=== PATIENT | female | born 1995 | race Caucasian/White ===

== ENCOUNTER 2016-04-26 05:29 | Emergency (ER) | payer OTHER ==
[~2016-04-26] VITALS: Ht 157.5 cm; Wt 56.3 kg
[~2016-04-26 05:29] MED LIST: ACYCLOVIR200 MG PO; AMBIEN5 MG PO; AMLODIPINE BESYL5 MG PO; AUGMENTIN875 MG PO; BACTRIM,SEPT1 TABLET PO; BENTYL20 MG PO; CALCIUM PO; CALCIUM500 M4 PO; CALCIUM600 MG PO; CARDIZEM30 MG PO; CEFDINIR300 MG PO; CELEXA20 MG PO; CELLCEPT250 MG PO; CITALOPRAM HBR20 M1 PO; CITALOPRAM HBR20 MG PO; CLEOCIN300 MG PO; CLINDAMYCIN HC300 MG PO; DELTASONE20 M1 PO; DIAMOX250 MG PO; DILAUDID2 MG PO; DOCUSATE SODIU100 MG PO; DOXYCYCLINE HY100 M3 PO; DUONEB 2.5-0.5 M3 ML PEP; ENDOCET 5-3251 EACH PO; ERGOCALCIF50000 UNIT PO; ESOMEPRAZOLE ST40 MG PO; FEROSUL325 MG PO; FIORICET 50-301 EACH PO; FIORICET,ESG1 TABLET PO; FLEXERIL10 MG PO; FLINTSTONES GUM16 MG PO; FOLIC ACID1 MG PO; Flovent 110 mcg IH; GABAPENTIN300 MG PO; HYDROMORPHONE HC2 MG PO; HYDROXYCHLOROQ200 MG PO; LABETALOL HCL200 MG PO; LISINOPRIL10 MG PO; LISINOPRIL20 MG PO; LISINOPRIL5 MG PO; LO-DOSE ASPIRIN81 M1 PO; LOTRISONE15 GM TP; LYRICA25 MG PO; MAGNESIUM OXID400 MG PO; METOPROLOL TART50 MG PO; MOTRIN600 MG PO; MYCOPHENOLATE250 MG PO; MYCOPHENOLATE500 MG PO; MYCOSTATIN 100,60 ML PO; Motrin PO; NAPROSYN500 MG PO; NAPROXEN500 MG PO; NEPHRO-VITE,1 TABLET PO; NEURONTIN300 MG PO; NORCO 5/3251 TABLET PO; Normodyne,Trandate PO; OXYCODONE HCL10 MG PO; Oscal 250 w/Vitamin PO; PANTOPRAZOLE SO40 MG PO; PERCOCET 5/31 TABLET PO; PLAQUENIL200 MG PO; PREDNISONE10 M2 PO; PREDNISONE20 MG PO; PREDNISONE50 MG PO; PROAIR HFA8.5 GM IH; PROAIR RESPICL90 MCG IH; PROCARDIA XL30 MG PO; PROVENTIL HFA6.7 GM IH; Percocet 5/325,Endoc PO; Plaquenil PO; Proventil,Ventolin H IH; QUETIAPINE FUMA25 MG PO; RANITIDINE HCL75 MG PO; SKELAXIN800 MG PO; TRAMADOL HCL50 MG PO; TRANDATE200 MG; TYLENOL EXTRA500 MG PO; TYLENOL WITH C1 EACH PO; ULTRAM50 MG PO; VENTOLIN HFA18 GM IH; VICODIN 5-3001 EACH PO; ZANTAC150 MG PO; ZESTRIL20 MG PO; ZITHROMAX Z-PA250 MG PO; ZOFRAN ODT4 MG PO; Zantac PO; celeXA PO; predniSONE PO
[2016-04-26 06:59] LABS: HEMATOCRIT 31.1 % (36.0-46.0); MCH 27.4 PG (29.0-34.0); MCHC 32.5 G/DL (30.0-36.0); MCV 84.3 FL (83-99); MEAN PLAT.VOLUME 9.8 uM^3 (9.5-12.4); PLATELET COUNT 185 K/uL (156-360); RBC DIS.WIDTH-CV 13.4 % (11.8-14.6); RBC DIS.WIDTH-SD 41.2 % (39-53); RED BLOOD COUNT 3.69 M/uL (3.80-5.20); WHITE BLOOD COUNT 2.5 K/uL (4.1-10.2)
[2016-04-26 07:41] LABS: ANION GAP 7 MEQ/L (2-14); CHLORIDE 104 MEQ/L (99-109); POTASSIUM 3.9 MEQ/L (3.7-5.4); SAMPLE HEMOLYSIS CHECK 0; SAMPLE ICTERIC CHECK 0; SAMPLE LIPEMIA CHECK 0; SODIUM 136 MEQ/L (136-147)
[2016-04-26 07:47] LABS: GFR ESTIMATE (CALCULATED) > 59 mL/min/; GLUCOSE 95 mg/dL (70-99); UREA NITROGEN (BUN) 14 mg/dL (9-23)
[2016-04-26 08:22] VITALS: BP 115/69
[2016-04-26 10:27] LABS: EOSINOPHIL (%) 5.6 % (0-5); EOSINOPHIL COUNT 0.1 K/uL (0-0.3); IMMATURE GRANULOCYTE (%) 0.8 % (0.0-0.7); INSTRUMENT ABS NEUTROPHIL CT 1.9 K/uL; LYMPHOCYTE COUNT 0.3 K/uL (1.0-2.8); MONOCYTE (%) 3.6 % (3-12); MONOCYTE COUNT 0.1 K/uL (0-0.8); NEUTROPHIL (%) 77.1 % (45-76); NEUTROPHIL COUNT 1.9 K/uL (1.8-6.4)
== END 2016-04-26 08:23 | disposition home or self-care (01) ==
LOC: EME 05:29
PROVIDERS: Emergency Medicine
DX: M79.1 Myalgia (principal); R07.89 Other chest pain; M32.9 Systemic lupus erythematosus, unspecified; J45.909 Unspecified asthma, uncomplicated; I10 Essential (primary) hypertension; F17.200 Nicotine dependence, unspecified, uncomplicated
CPT/HCPCS: 71020; 80048; 85025; 93005; 99281; 99285; J1170; J7030; J7050

== ENCOUNTER 2016-04-30 06:37 | Emergency (ER) | payer OTHER ==
[~2016-04-30] VITALS: Ht 157.5 cm; Wt 57.4 kg
[2016-04-30 07:37] LABS: HEMATOCRIT 29.2 % (36.0-46.0); MCH 27.2 PG (29.0-34.0); MCHC 32.2 G/DL (30.0-36.0); MCV 84.4 FL (83-99); MEAN PLAT.VOLUME 9.8 uM^3 (9.5-12.4); PLATELET COUNT 172 K/uL (156-360); RBC DIS.WIDTH-CV 13.5 % (11.8-14.6); RBC DIS.WIDTH-SD 41.4 % (39-53); RED BLOOD COUNT 3.46 M/uL (3.80-5.20); WHITE BLOOD COUNT 2.1 K/uL (4.1-10.2)
[2016-04-30 08:17] LABS: ANION GAP 5 MEQ/L (2-14); CHLORIDE 103 MEQ/L (99-109); GFR ESTIMATE (CALCULATED) > 59 mL/min/; GLUCOSE 92 mg/dL (70-99); SAMPLE HEMOLYSIS CHECK 0; SAMPLE ICTERIC CHECK 0; SAMPLE LIPEMIA CHECK 0; SODIUM 134 MEQ/L (136-147); TROP-I INTERPRETATION NEGATIVE; TROPONIN-I 0.01 ng/mL (0.0-0.30); UREA NITROGEN (BUN) 15 mg/dL (9-23)
[2016-04-30 09:30] LABS: D-DIMER ELISA > 4.00 mg/L FEU (< 0.57)
[2016-04-30 10:25] VITALS: BP 116/76
== END 2016-04-30 10:26 | disposition home or self-care (01) ==
LOC: EME 06:37
DX: R07.9 Chest pain, unspecified (principal); R68.83 Chills (without fever); R51 Headache; R59.9 Enlarged lymph nodes, unspecified; R00.0 Tachycardia, unspecified; R79.1 Abnormal coagulation profile; I10 Essential (primary) hypertension; F17.200 Nicotine dependence, unspecified, uncomplicated
CPT/HCPCS: 71020; 80048; 84484; 85027; 85379; 93005; 99281; 99285; J3010

== ENCOUNTER 2016-05-06 05:54 | Inpatient (IN) | payer OTHER ==
[~2016-05-06] VITALS: Ht 157.5 cm; Wt 54.9 kg
[2016-05-06 06:30] LABS: HEMATOCRIT 31.4 % (36.0-46.0); MCH 27.3 PG (29.0-34.0); MCHC 32.5 G/DL (30.0-36.0); PLATELET COUNT 199 K/uL (156-360); RBC DIS.WIDTH-CV 13.9 % (11.8-14.6); RBC DIS.WIDTH-SD 42.8 % (39-53); RED BLOOD COUNT 3.74 M/uL (3.80-5.20); WHITE BLOOD COUNT 2.4 K/uL (4.1-10.2)
[2016-05-06 06:41] LABS: CHLORIDE 102 mEq/L (99-109); POTASSIUM 3.7 mEq/L (3.7-5.4); SODIUM 134 mEq/L (136-147)
[2016-05-06 06:42] LABS: GLUCOSE 98 mg/dL (70-99)
[2016-05-06 06:44] LABS: ANION GAP 9 MEQ/L (2-14)
[2016-05-06 06:46] LABS: GFR ESTIMATE (CALCULATED) > 59 mL/min/
[2016-05-06 06:47] LABS: UREA NITROGEN (BUN) 14 mg/dL (9-23)
[2016-05-06 06:55] LABS: TROP-I INTERPRETATION NEGATIVE; TROPONIN-I < 0.01 ng/mL (0.0-0.30)
[2016-05-06 08:54] LABS: ADD MIUA? YES; BILIRUBIN NEGATIVE; BLOOD SMALL; COLOR YELLOW ((YELLOW)); GLUCOSE (STRIP) NEGATIVE; KETONES NEGATIVE; LEUKOCYTES NEGATIVE; NITRITE NEGATIVE; PROTEIN (STRIP) >=500; SPECIFIC GRAVITY 1.017 (1.000-1.030); UROBILINOGEN 0.2 MG/DL (0.2-1.0)
[2016-05-06 08:59] LABS: TOTAL BILIRUBIN 0.2 mg/dL (0.0-1.0)
[2016-05-06 09:00] LABS: ALKALINE PHOSPHATASE 53 IU/L (3-129)
[2016-05-06 09:02] LABS: DIRECT BILIRUBIN 0.1 mg/dL (0.0-0.3)
[2016-05-06 09:03] LABS: LIPASE 8 U/L (1.0-51.0)
[2016-05-06 09:09] LABS: BACTERIA 2+ /HPF; EPITHELIAL CELLS 1+ /HPF
[2016-05-06 09:10] LABS: MUCUS 1+ /LPF; UCUL ADDED? YES
[2016-05-06 09:19] LABS: INFLUENZA A VIRAL ANTIGEN NEGATIVE; INFLUENZA B VIRAL ANTIGEN NEGATIVE
[2016-05-06] MEDS ORDERED: PREDNISONE20 MG PO (10:41)
[2016-05-06] MEDS ORDERED: MYCOPHENOLATE500 MG PO (10:41)
[2016-05-06] MEDS ORDERED: RANITIDINE HCL150 MG PO (10:41)
[2016-05-06 11:08] VITALS: BP 98/58
[2016-05-06 11:12] LABS: ERTH.SED.RATE 77 MM/HR (0-20)
== END 2016-05-06 11:05 | disposition left against medical advice (07) | DRG 864 ==
LOC: EME 05:54 → EDOF 09:20
PROVIDERS: Emergency Medicine
DX: R50.9 Fever, unspecified (principal); G89.29 Other chronic pain; I10 Essential (primary) hypertension; Z88.6 Allergy status to analgesic agent; Z88.0 Allergy status to penicillin; F17.200 Nicotine dependence, unspecified, uncomplicated; R11.0 Nausea; E86.0 Dehydration; R00.0 Tachycardia, unspecified
CPT/HCPCS: 71020; 80048; 80076; 81003; 83605; 83690; 83880; 84484; 85027; 85651; 87040; 87086; 87502; 93005; 99281; 99284; J1885; J1956; J2405; J7030; J7050

== ENCOUNTER 2016-05-13 06:30 | Emergency (ER) | payer OTHER ==
[~2016-05-13] VITALS: Ht 157.5 cm; Wt 53.7 kg
[~2016-05-13 06:30] MED LIST changes: +RANITIDINE HCL150 MG PO
[2016-05-13 07:57] LABS: ANION GAP 8 MEQ/L (2-14); CHLORIDE 100 MEQ/L (99-109); POTASSIUM 4.6 MEQ/L (3.7-5.4); SAMPLE HEMOLYSIS CHECK 0; SAMPLE ICTERIC CHECK 0; SAMPLE LIPEMIA CHECK 0; SODIUM 133 MEQ/L (136-147)
[2016-05-13 08:03] LABS: GFR ESTIMATE (CALCULATED) > 59 mL/min/; GLUCOSE 102 mg/dL (70-99); UREA NITROGEN (BUN) 14 mg/dL (9-23)
[2016-05-13 08:12] LABS: HEMATOCRIT 30.6 % (36.0-46.0); MCH 26.5 PG (29.0-34.0); MCHC 31.7 G/DL (30.0-36.0); MCV 83.6 FL (83-99); MEAN PLAT.VOLUME 9.2 uM^3 (9.5-12.4); PLATELET COUNT 178 K/uL (156-360); RBC DIS.WIDTH-SD 43.3 % (39-53); RED BLOOD COUNT 3.66 M/uL (3.80-5.20); WHITE BLOOD COUNT 2.6 K/uL (4.1-10.2)
[2016-05-13 08:41] LABS: QUANTITATIVE HCG < 4.0 MIU/ML
[2016-05-13 09:28] LABS: ADD MIUA? YES; BILIRUBIN NEGATIVE; BLOOD NEGATIVE; COLOR AMBER ((YELLOW)); GLUCOSE (STRIP) NEGATIVE; KETONES NEGATIVE; LEUKOCYTES NEGATIVE; NITRITE NEGATIVE; PROTEIN (STRIP) >=500; SPECIFIC GRAVITY 1.022 (1.000-1.030); UROBILINOGEN 0.2 MG/DL (0.2-1.0)
[2016-05-13 09:50] LABS: BACTERIA RARE /HPF; EPITHELIAL CELLS 1+ /HPF; MUCUS TRACE /LPF; RED BLOOD CELLS 0-5 /HPF (0-5); UCUL ADDED? NO
[2016-05-13] MEDS ORDERED: CELEXA20 MG PO (10:01)
[2016-05-13] MEDS ORDERED: DILAUDID2 MG PO (14:12)
[2016-05-13 16:04] VITALS: BP 95/66
== END 2016-05-13 16:14 | disposition home or self-care (01) ==
LOC: EME 06:30
PROVIDERS: Emergency Medicine
DX: M32.9 Systemic lupus erythematosus, unspecified (principal); R11.2 Nausea with vomiting, unspecified; M54.5 Low back pain; I10 Essential (primary) hypertension; Z79.52 Long term (current) use of systemic steroids; F17.200 Nicotine dependence, unspecified, uncomplicated
CPT/HCPCS: 71010; 80048; 81003; 83605; 84702; 85027; 87040; 99281; 99285; J2060; J2270; J2405; J2930; J7030

== ENCOUNTER 2016-05-21 17:39 | Emergency (ER) | payer OTHER ==
[~2016-05-21] VITALS: Ht 157.5 cm; Wt 53.0 kg
[2016-05-21 18:53] LABS: CHLORIDE 102 mEq/L (99-109); POTASSIUM 3.9 mEq/L (3.7-5.4); SODIUM 134 mEq/L (136-147)
[2016-05-21 18:55] LABS: GLUCOSE 96 mg/dL (70-99)
[2016-05-21 18:56] LABS: ANION GAP 10 MEQ/L (2-14)
[2016-05-21 18:57] LABS: TOTAL BILIRUBIN 0.2 mg/dL (0.0-1.0)
[2016-05-21 18:59] LABS: ALKALINE PHOSPHATASE 45 IU/L (3-129); GFR ESTIMATE (CALCULATED) > 59 mL/min/
[2016-05-21 19:00] LABS: UREA NITROGEN (BUN) 13 mg/dL (9-23)
[2016-05-21 19:02] LABS: LIPASE 11 U/L (1.0-51.0)
[2016-05-21 19:08] LABS: QUANTITATIVE HCG < 4.0 MIU/ML
[2016-05-21 19:36] LABS: ADD MIUA? YES; BILIRUBIN NEGATIVE; BLOOD SMALL; COLOR AMBER ((YELLOW)); GLUCOSE (STRIP) NEGATIVE; KETONES NEGATIVE; LEUKOCYTES NEGATIVE; NITRITE NEGATIVE; PROTEIN (STRIP) >=500; SPECIFIC GRAVITY 1.023 (1.000-1.030); UROBILINOGEN 0.2 MG/DL (0.2-1.0)
[2016-05-21 19:50] LABS: EOSINOPHIL (%) 0.9 % (0-5); HEMATOLOGY COMMENT 1 SN; IMMATURE GRANULOCYTE (%) 0.9 % (0.0-0.7); LYMPHOCYTE COUNT 0.2 K/uL (1.0-2.8); MEAN PLAT.VOLUME 11.4 uM^3 (9.5-12.4); MONOCYTE (%) 1.8 % (3-12); MONOCYTE COUNT 0.1 K/uL (0-0.8); NEUTROPHIL (%) 89.4 % (45-76); PLAT.SUFFICIENCY ADEQUATE; PLATELET COUNT 124 K/uL (156-360)
[2016-05-21 19:59] LABS: BACTERIA 2+ /HPF; CASTS PRESENT /LPF; EPITHELIAL CELLS 1+ /HPF; MUCUS RARE /LPF; RED BLOOD CELLS 0-5 /HPF (0-5)
[2016-05-21 19:59] LABS: HEMATOCRIT 28.2 % (36.0-46.0); MCH 26.3 PG (29.0-34.0); MCHC 31.6 G/DL (30.0-36.0); MCV 83.2 FL (83-99); RBC DIS.WIDTH-CV 14.6 % (11.8-14.6); RBC DIS.WIDTH-SD 44.4 % (39-53); RED BLOOD COUNT 3.39 M/uL (3.80-5.20); WHITE BLOOD COUNT 3.3 K/uL (4.1-10.2)
[2016-05-21 20:00] LABS: CRYSTALS NONE SEEN; FINE GRANULAR CASTS 0-5 /LPF; HYALINE CASTS 0-5 /LPF
[2016-05-21] MEDS ORDERED: ZOFRAN ODT4 MG PO (20:44)
[2016-05-21 21:58] VITALS: BP 101/66
== END 2016-05-21 21:58 | disposition home or self-care (01) ==
LOC: EME 17:39
PROVIDERS: Emergency Medicine
DX: R11.0 Nausea (principal); F11.23 Opioid dependence with withdrawal; I10 Essential (primary) hypertension; G89.29 Other chronic pain; M32.9 Systemic lupus erythematosus, unspecified; F17.200 Nicotine dependence, unspecified, uncomplicated; Z88.1 Allergy status to other antibiotic agents; Z88.6 Allergy status to analgesic agent
CPT/HCPCS: 80053; 81003; 83690; 84702; 84703; 85025; 93005; 99281; 99284

== ENCOUNTER 2016-05-27 08:16 | Inpatient (IN) | payer OTHER ==
[~2016-05-27] VITALS: Ht 1585 cm; Wt 54.0 kg
[2016-05-27 09:16] LABS: MCH 26.3 PG (29.0-34.0); MCHC 31.6 G/DL (30.0-36.0); MCV 83.3 FL (83-99); MEAN PLAT.VOLUME 10.9 uM^3 (9.5-12.4); PLATELET COUNT 104 K/uL (156-360); RBC DIS.WIDTH-CV 15.2 % (11.8-14.6); RBC DIS.WIDTH-SD 45.6 % (39-53); RED BLOOD COUNT 3.84 M/uL (3.80-5.20)
[2016-05-27 09:17] LABS: CHLORIDE 103 mEq/L (99-109); POTASSIUM 3.9 mEq/L (3.7-5.4); SODIUM 133 mEq/L (136-147)
[2016-05-27 09:18] LABS: WHITE BLOOD COUNT 1.9 K/uL (4.1-10.2)
[2016-05-27 09:20] LABS: GLUCOSE 84 mg/dL (70-99)
[2016-05-27 09:21] LABS: ANION GAP 10 MEQ/L (2-14)
[2016-05-27 09:23] LABS: GFR ESTIMATE (CALCULATED) > 59 mL/min/; TOTAL BILIRUBIN 0.3 mg/dL (0.0-1.0)
[2016-05-27 09:24] LABS: UREA NITROGEN (BUN) 16 mg/dL (9-23)
[2016-05-27 09:27] LABS: LIPASE 18 U/L (1.0-51.0)
[2016-05-27 09:29] LABS: ALKALINE PHOSPHATASE 61 IU/L (3-129)
[2016-05-27 10:04] LABS: EOSINOPHIL (%) 1.6 % (0-5); HEMATOLOGY COMMENT 1 SMEAR COMPATIBLE; INSTRUMENT ABS NEUTROPHIL CT 1.5 K/uL; LYMPHOCYTE COUNT 0.3 K/uL (1.0-2.8); MONOCYTE (%) 4.7 % (3-12); MONOCYTE COUNT 0.1 K/uL (0-0.8); NEUTROPHIL (%) 78.6 % (45-76); NEUTROPHIL COUNT 1.5 K/uL (1.8-6.4)
[2016-05-27 12:00] VITALS: BP 90/55
[2016-05-27 13:42] LABS: ADD MIUA? YES; BILIRUBIN NEGATIVE; BLOOD NEGATIVE; COLOR YELLOW ((YELLOW)); GLUCOSE (STRIP) NEGATIVE; KETONES NEGATIVE; LEUKOCYTES NEGATIVE; NITRITE NEGATIVE; PROTEIN (STRIP) 100; SPECIFIC GRAVITY 1.018 (1.000-1.030); UROBILINOGEN 0.2 MG/DL (0.2-1.0)
[2016-05-27 13:52] LABS: BACTERIA RARE /HPF; EPITHELIAL CELLS RARE /HPF; HYALINE CASTS 20-30 /LPF; MUCUS TRACE /LPF; RED BLOOD CELLS 0-5 /HPF (0-5); UCUL ADDED? NO
[2016-05-27 15:55] VITALS: BP 90/55
[2016-05-27 20:37] VITALS: BP 89/53
[2016-05-28 00:15] VITALS: BP 90/52
[2016-05-28 03:51] VITALS: BP 84/48
[2016-05-28 09:00] VITALS: BP 92/51
[2016-05-28 09:30] LABS: ANION GAP 5 MEQ/L (2-14); CHLORIDE 107 MEQ/L (99-109); GFR ESTIMATE (CALCULATED) > 59 mL/min/; GLUCOSE 84 mg/dL (70-99); POTASSIUM 3.7 MEQ/L (3.7-5.4); SAMPLE HEMOLYSIS CHECK 0; SAMPLE ICTERIC CHECK 0; SAMPLE LIPEMIA CHECK 0; SODIUM 133 MEQ/L (136-147); UREA NITROGEN (BUN) 12 mg/dL (9-23)
[2016-05-28 09:56] LABS: HEMATOCRIT 24.4 % (36.0-46.0); MCH 26.5 PG (29.0-34.0); MCHC 30.7 G/DL (30.0-36.0); MCV 86.2 FL (83-99); MEAN PLAT.VOLUME 11.9 uM^3 (9.5-12.4); PLATELET COUNT 96 K/uL (156-360); RBC DIS.WIDTH-CV 15.2 % (11.8-14.6); RBC DIS.WIDTH-SD 48.5 % (39-53)
[2016-05-28 10:03] LABS: RED BLOOD COUNT 2.83 M/uL (3.80-5.20); WHITE BLOOD COUNT 1.5 K/uL (4.1-10.2)
[2016-05-28 12:07] LABS: IRON 20 MCG/DL (35-150)
[2016-05-28 12:17] LABS: HEMATOCRIT 24.2 % (36.0-46.0); MCV 87.1 FL (83-99)
[2016-05-28 12:23] LABS: FERRITIN 436 NG/ML (10-291)
[2016-05-28 13:02] VITALS: BP 86/45
[2016-05-28 15:00] VITALS: BP 84/47
[2016-05-28 19:10] VITALS: BP 88/46
[2016-05-29 00:26] VITALS: BP 81/45
[2016-05-29 04:00] VITALS: BP 88/41
[2016-05-29 08:30] VITALS: BP 94/51
[2016-05-29 12:42] VITALS: BP 84/48
[2016-05-29 13:11] LABS: HEMATOCRIT 25.9 % (36.0-46.0); MCH 26.6 PG (29.0-34.0); MCHC 30.5 G/DL (30.0-36.0); MCV 87.2 FL (83-99); MEAN PLAT.VOLUME 11.9 uM^3 (9.5-12.4); PLATELET COUNT 103 K/uL (156-360); RBC DIS.WIDTH-CV 15.7 % (11.8-14.6); RBC DIS.WIDTH-SD 49.6 % (39-53); RED BLOOD COUNT 2.97 M/uL (3.80-5.20)
[2016-05-29 13:17] LABS: WHITE BLOOD COUNT 1.7 K/uL (4.1-10.2)
[2016-05-29 13:52] LABS: EOSINOPHIL (%) 1.8 % (0-5); IMMATURE GRANULOCYTE (%) 1.2 % (0.0-0.7); INSTRUMENT ABS NEUTROPHIL CT 1.4 K/uL; LYMPHOCYTE COUNT 0.1 K/uL (1.0-2.8); MONOCYTE (%) 4.2 % (3-12); MONOCYTE COUNT 0.1 K/uL (0-0.8); NEUTROPHIL (%) 86.2 % (45-76); NEUTROPHIL COUNT 1.4 K/uL (1.8-6.4)
[2016-05-29 16:15] VITALS: BP 102/55
[2016-05-29 20:05] VITALS: BP 83/51
[2016-05-30] VITALS (7 sets, daily range): BP systolic 83–101; BP diastolic 48–60
[2016-05-30 10:12] LABS: HEMATOCRIT 22.1 % (36.0-46.0); MCH 26.6 PG (29.0-34.0); MCHC 30.8 G/DL (30.0-36.0); MCV 86.3 FL (83-99); PLATELET COUNT 81 K/uL (156-360); RBC DIS.WIDTH-CV 15.8 % (11.8-14.6); RBC DIS.WIDTH-SD 49.7 % (39-53); RED BLOOD COUNT 2.56 M/uL (3.80-5.20)
[2016-05-30 10:13] LABS: MEAN PLAT.VOLUME 9.9 uM^3 (9.5-12.4); WHITE BLOOD COUNT 1.5 K/uL (4.1-10.2)
[2016-05-30 10:31] LABS: ANION GAP 6 MEQ/L (2-14); CHLORIDE 108 MEQ/L (99-109); GFR ESTIMATE (CALCULATED) > 59 mL/min/; GLUCOSE 87 mg/dL (70-99); MAGNESIUM 1.3 mg/dl (1.3-2.7); POTASSIUM 4.1 MEQ/L (3.7-5.4); SAMPLE HEMOLYSIS CHECK 0; SAMPLE ICTERIC CHECK 0; SAMPLE LIPEMIA CHECK 0; SODIUM 135 MEQ/L (136-147); UREA NITROGEN (BUN) 9 mg/dL (9-23)
[2016-05-30 16:59] LABS: HEMATOCRIT 22.7 % (36.0-46.0); MCH 26.8 PG (29.0-34.0); MCHC 31.3 G/DL (30.0-36.0); MCV 85.7 FL (83-99); MEAN PLAT.VOLUME 11.3 uM^3 (9.5-12.4); PLATELET COUNT 94 K/uL (156-360); RBC DIS.WIDTH-CV 15.9 % (11.8-14.6); RBC DIS.WIDTH-SD 49.5 % (39-53); RED BLOOD COUNT 2.65 M/uL (3.80-5.20)
[2016-05-30 17:00] LABS: WHITE BLOOD COUNT 1.8 K/uL (4.1-10.2)
[2016-05-31 04:03] VITALS: BP 109/60
[2016-05-31 07:15] VITALS: BP 91/55
[2016-05-31 09:04] LABS: EOSINOPHIL (%) 0 % (0-5); HEMATOCRIT 23.4 % (36.0-46.0); IMMATURE GRANULOCYTE (%) 1.5 % (0.0-0.7); INSTRUMENT ABS NEUTROPHIL CT 1.8 K/uL; LYMPHOCYTE COUNT 0.1 K/uL (1.0-2.8); MCHC 31.6 G/DL (30.0-36.0); MCV 85.4 FL (83-99); MEAN PLAT.VOLUME 9.7 uM^3 (9.5-12.4); MONOCYTE COUNT 0.1 K/uL (0-0.8); NEUTROPHIL (%) 89.6 % (45-76); NEUTROPHIL COUNT 1.8 K/uL (1.8-6.4); PLATELET COUNT 84 K/uL (156-360); RBC DIS.WIDTH-CV 15.9 % (11.8-14.6); RBC DIS.WIDTH-SD 49.1 % (39-53); RED BLOOD COUNT 2.74 M/uL (3.80-5.20)
[2016-05-31 09:33] LABS: ANION GAP 4 MEQ/L (2-14); CHLORIDE 108 MEQ/L (99-109); GFR ESTIMATE (CALCULATED) > 59 mL/min/; POTASSIUM 4.5 MEQ/L (3.7-5.4); SAMPLE HEMOLYSIS CHECK 0; SAMPLE ICTERIC CHECK 0; SAMPLE LIPEMIA CHECK 0; SODIUM 132 MEQ/L (136-147); UREA NITROGEN (BUN) 10 mg/dL (9-23)
[2016-05-31 09:35] LABS: GLUCOSE 169 mg/dL (70-99)
[2016-05-31 11:00] VITALS: BP 93/54
[2016-05-31 15:30] VITALS: BP 103/59
== END 2016-05-31 16:25 | disposition left against medical advice (07) | DRG 546 ==
LOC: EME 08:16 → 4EAST 10:35 → EDOF 10:35 → 4EAST 11:42 → 2EAST 05-29 16:14
PROVIDERS: Emergency Medicine; Hospitalist; Internal Medicine
DX: M32.9 Systemic lupus erythematosus, unspecified (principal); D61.818 Other pancytopenia; E86.0 Dehydration; E46 Unspecified protein-calorie malnutrition; G89.29 Other chronic pain; Z79.52 Long term (current) use of systemic steroids; F32.9 Major depressive disorder, single episode, unspecified; Z91.19 Patient's noncompliance with other medical treatment and regimen; G40.909 Epilepsy, unspecified, not intractable, without status epilepticus; F41.9 Anxiety disorder, unspecified; F17.210 Nicotine dependence, cigarettes, uncomplicated; E88.09 Other disorders of plasma-protein metabolism, not elsewhere classified; R65.10 Systemic inflammatory response syndrome (SIRS) of non-infectious origin without acute organ dysfunction; E53.8 Deficiency of other specified B group vitamins
CPT/HCPCS: 71010; 74176; 80048; 80053; 81003; 82272; 82607; 82728; 83540; 83605; 83690; 83735; 84466; 85014; 85018; 85025; 85027; 87040; 99281; 99285; C9113; J0610; J1170; J2270; J2405; J2765; J2930; J7030; J7050; J7517

== ENCOUNTER 2016-06-01 09:47 | Inpatient (IN) | payer OTHER ==
[~2016-06-01] VITALS: Ht 157.5 cm; Wt 53.0 kg
[2016-06-01 10:33] LABS: ADD MIUA? YES; BILIRUBIN NEGATIVE; BLOOD MODERATE; COLOR YELLOW ((YELLOW)); GLUCOSE (STRIP) NEGATIVE; KETONES NEGATIVE; LEUKOCYTES NEGATIVE; NITRITE NEGATIVE; PROTEIN (STRIP) 100; SPECIFIC GRAVITY 1.011 (1.000-1.030); UROBILINOGEN 0.2 MG/DL (0.2-1.0)
[2016-06-01 10:39] LABS: BACTERIA RARE /HPF; EPITHELIAL CELLS RARE /HPF; HYALINE CASTS 0-5 /LPF; MUCUS TRACE /LPF; RED BLOOD CELLS 0-5 /HPF (0-5); UCUL ADDED? NO; UNCLASSIFIED CASTS 0-5 /LPF; WHITE BLOOD CELLS 0-5 /HPF (0-5)
[2016-06-01 10:58] LABS: EOSINOPHIL (%) 0 % (0-5); HEMATOCRIT 27.5 % (36.0-46.0); IMMATURE GRANULOCYTE (%) 1.8 % (0.0-0.7); IMMATURE GRANULOCYTE COUNT 0.1 K/uL; INSTRUMENT ABS NEUTROPHIL CT 4.7 K/uL; LYMPHOCYTE COUNT 0.3 K/uL (1.0-2.8); MCH 26.2 PG (29.0-34.0); MCHC 30.9 G/DL (30.0-36.0); MCV 84.9 FL (83-99); MEAN PLAT.VOLUME 10.2 uM^3 (9.5-12.4); MONOCYTE (%) 7.1 % (3-12); MONOCYTE COUNT 0.4 K/uL (0-0.8); NEUTROPHIL (%) 85.7 % (45-76); NEUTROPHIL COUNT 4.7 K/uL (1.8-6.4); RBC DIS.WIDTH-CV 16.3 % (11.8-14.6); RBC DIS.WIDTH-SD 50.1 % (39-53); RED BLOOD COUNT 3.24 M/uL (3.80-5.20)
[2016-06-01 10:59] LABS: PLATELET COUNT 147 K/uL (156-360); WHITE BLOOD COUNT 5.5 K/uL (4.1-10.2)
[2016-06-01 11:02] LABS: CHLORIDE 111 mEq/L (99-109); SODIUM 135 mEq/L (136-147)
[2016-06-01 11:05] LABS: ANION GAP 7 MEQ/L (2-14)
[2016-06-01 11:06] LABS: GLUCOSE 118 mg/dL (70-99)
[2016-06-01 11:07] LABS: ALKALINE PHOSPHATASE 67 IU/L (3-129)
[2016-06-01 11:08] LABS: GFR ESTIMATE (CALCULATED) > 59 mL/min/
[2016-06-01 11:09] LABS: TOTAL BILIRUBIN 0.2 mg/dL (0.0-1.0); UREA NITROGEN (BUN) 15 mg/dL (9-23)
[2016-06-01 11:11] LABS: LIPASE 797 U/L (1.0-51.0)
[2016-06-01 16:49] VITALS: BP 124/82
[2016-06-01 23:51] VITALS: BP 99/62
[2016-06-02 03:53] VITALS: BP 100/67
[2016-06-02 07:14] LABS: EOSINOPHIL (%) 0.4 % (0-5); HEMATOCRIT 25.5 % (36.0-46.0); IMMATURE GRANULOCYTE (%) 3.4 % (0.0-0.7); IMMATURE GRANULOCYTE COUNT 0.1 K/uL; INSTRUMENT ABS NEUTROPHIL CT 1.8 K/uL; LYMPHOCYTE COUNT 0.2 K/uL (1.0-2.8); MCH 26.4 PG (29.0-34.0); MCHC 30.6 G/DL (30.0-36.0); MCV 86.1 FL (83-99); MEAN PLAT.VOLUME 11.5 uM^3 (9.5-12.4); MONOCYTE (%) 8.6 % (3-12); MONOCYTE COUNT 0.2 K/uL (0-0.8); NEUTROPHIL (%) 78.6 % (45-76); NEUTROPHIL COUNT 1.8 K/uL (1.8-6.4); PLATELET COUNT 114 K/uL (156-360); RBC DIS.WIDTH-CV 16.4 % (11.8-14.6); RBC DIS.WIDTH-SD 50.2 % (39-53); RED BLOOD COUNT 2.96 M/uL (3.80-5.20)
[2016-06-02 07:15] LABS: WHITE BLOOD COUNT 2.3 K/uL (4.1-10.2)
[2016-06-02 07:33] LABS: ALKALINE PHOSPHATASE 54 IU/L (3-129); ANION GAP 8 MEQ/L (2-14); CHLORIDE 111 MEQ/L (99-109); GFR ESTIMATE (CALCULATED) > 59 mL/min/; SAMPLE HEMOLYSIS CHECK 0; SAMPLE ICTERIC CHECK 0; SAMPLE LIPEMIA CHECK 0; SODIUM 139 MEQ/L (136-147); TOTAL BILIRUBIN 0.2 MG/DL (0.0-1.0); UREA NITROGEN (BUN) 10 mg/dL (9-23)
[2016-06-02 07:38] LABS: GLUCOSE 63 mg/dL (70-99); POTASSIUM 3.7 MEQ/L (3.7-5.4)
[2016-06-02 07:58] VITALS: BP 104/64
[2016-06-02 08:20] LABS: ANION GAP 5 MEQ/L (2-14); CHLORIDE 113 MEQ/L (99-109); GFR ESTIMATE (CALCULATED) > 59 mL/min/; GLUCOSE 65 mg/dL (70-99); HDL CHOLESTEROL 11 MG/DL (Desirable>=50); LDL CHOLESTEROL 32 mg/dL (Desirable<100); LIPASE 312 U/L (1.0-51.0); NON-HDL CHOLESTEROL 75 mg/dL (Desirable<160); POTASSIUM 3.7 MEQ/L (3.7-5.4); SAMPLE HEMOLYSIS CHECK 0; SAMPLE ICTERIC CHECK 0; SAMPLE LIPEMIA CHECK 0; SODIUM 139 MEQ/L (136-147); TOTAL CHOLESTEROL 86 mg/dL (Desirable<200); TRIGLYCERIDES 216 MG/DL (Normal: <150); UREA NITROGEN (BUN) 10 mg/dL (9-23)
[2016-06-02 11:16] VITALS: BP 114/67
[2016-06-02 20:10] VITALS: BP 128/71
[2016-06-03] VITALS: BP 114/71
[2016-06-03 03:58] VITALS: BP 103/63
[2016-06-03 07:43] VITALS: BP 93/55
[2016-06-03 07:50] LABS: EOSINOPHIL (%) 0 % (0-5); HEMATOCRIT 23.4 % (36.0-46.0); IMMATURE GRANULOCYTE (%) 1.3 % (0.0-0.7); INSTRUMENT ABS NEUTROPHIL CT 1.2 K/uL; LYMPHOCYTE COUNT 0.2 K/uL (1.0-2.8); MCH 25.7 PG (29.0-34.0); MCHC 30.3 G/DL (30.0-36.0); MCV 84.8 FL (83-99); MEAN PLAT.VOLUME 10.6 uM^3 (9.5-12.4); MONOCYTE (%) 7.8 % (3-12); MONOCYTE COUNT 0.1 K/uL (0-0.8); NEUTROPHIL (%) 80.5 % (45-76); NEUTROPHIL COUNT 1.2 K/uL (1.8-6.4); PLATELET COUNT 91 K/uL (156-360); RBC DIS.WIDTH-CV 16.6 % (11.8-14.6); RBC DIS.WIDTH-SD 50.6 % (39-53); RED BLOOD COUNT 2.76 M/uL (3.80-5.20)
[2016-06-03 08:28] LABS: WHITE BLOOD COUNT 1.5 K/uL (4.1-10.2)
[2016-06-03 09:17] LABS: ALKALINE PHOSPHATASE 62 IU/L (3-129); ANION GAP 6 MEQ/L (2-14); CHLORIDE 108 MEQ/L (99-109); GFR ESTIMATE (CALCULATED) > 59 mL/min/; LIPASE 120 U/L (1.0-51.0); POTASSIUM 3.6 MEQ/L (3.7-5.4); SAMPLE HEMOLYSIS CHECK 0; SAMPLE ICTERIC CHECK 0; SAMPLE LIPEMIA CHECK 0; SODIUM 133 MEQ/L (136-147); TOTAL BILIRUBIN 0.2 MG/DL (0.0-1.0); UREA NITROGEN (BUN) 8 mg/dL (9-23)
[2016-06-03 09:20] LABS: GLUCOSE 81 mg/dL (70-99)
[2016-06-03 11:28] VITALS: BP 94/57
[2016-06-03 14:17] LABS: HEMATOCRIT 25.7 % (36.0-46.0); MCV 85.4 FL (83-99)
[2016-06-03 15:35] VITALS: BP 95/47
[2016-06-03 19:44] VITALS: BP 107/48
[2016-06-04] VITALS (7 sets, daily range): BP systolic 87–103; BP diastolic 47–64
[2016-06-05] VITALS (10 sets, daily range): BP systolic 88–126; BP diastolic 51–67
[2016-06-05 07:49] LABS: HEMATOCRIT 21.1 % (36.0-46.0); MCH 26.3 PG (29.0-34.0); MCHC 31.3 G/DL (30.0-36.0); MCV 84.1 FL (83-99); MEAN PLAT.VOLUME 12.1 uM^3 (9.5-12.4); PLATELET COUNT 88 K/uL (156-360); RBC DIS.WIDTH-CV 16.7 % (11.8-14.6); RBC DIS.WIDTH-SD 50.4 % (39-53); RED BLOOD COUNT 2.51 M/uL (3.80-5.20); WHITE BLOOD COUNT 1.8 K/uL (4.1-10.2)
[2016-06-05 08:05] LABS: ANION GAP 5 MEQ/L (2-14); CHLORIDE 106 MEQ/L (99-109); GFR ESTIMATE (CALCULATED) > 59 mL/min/; GLUCOSE 87 mg/dL (70-99); LIPASE 115 U/L (1.0-51.0); POTASSIUM 3.8 MEQ/L (3.7-5.4); SAMPLE HEMOLYSIS CHECK 0; SAMPLE ICTERIC CHECK 0; SAMPLE LIPEMIA CHECK 0; SODIUM 131 MEQ/L (136-147); UREA NITROGEN (BUN) 8 mg/dL (9-23)
[2016-06-05 16:24] LABS: HEMATOCRIT 29.7 % (36.0-46.0); MCH 27.6 PG (29.0-34.0); MCV 83.7 FL (83-99); MEAN PLAT.VOLUME 10.8 uM^3 (9.5-12.4); PLATELET COUNT 85 K/uL (156-360); RBC DIS.WIDTH-CV 15.8 % (11.8-14.6); RBC DIS.WIDTH-SD 47.9 % (39-53); WHITE BLOOD COUNT 2.3 K/uL (4.1-10.2)
[2016-06-05 16:29] LABS: RED BLOOD COUNT 3.55 M/uL (3.80-5.20)
[2016-06-05 17:06] LABS: IMM.RETIC FRACTION 12.3 % (3-19); RETIC HGB EQUIVALENT 29.9 (28-36); RETICULOCYTE COUNT 1.8 % (0.5-1.8)
[2016-06-06] VITALS (8 sets, daily range): BP systolic 99–123; BP diastolic 57–78
[2016-06-06 09:31] LABS: HEMATOCRIT 31.6 % (36.0-46.0); MCH 27.2 PG (29.0-34.0); MCHC 32.6 G/DL (30.0-36.0); MCV 83.4 FL (83-99); MEAN PLAT.VOLUME 10.3 uM^3 (9.5-12.4); PLATELET COUNT 80 K/uL (156-360); RBC DIS.WIDTH-CV 16.3 % (11.8-14.6); RBC DIS.WIDTH-SD 49.3 % (39-53); RED BLOOD COUNT 3.79 M/uL (3.80-5.20)
[2016-06-06 09:50] LABS: ANION GAP 8 MEQ/L (2-14); CHLORIDE 104 MEQ/L (99-109); GFR ESTIMATE (CALCULATED) > 59 mL/min/; GLUCOSE 83 mg/dL (70-99); LIPASE 137 U/L (1.0-51.0); POTASSIUM 3.7 MEQ/L (3.7-5.4); SAMPLE HEMOLYSIS CHECK 0; SAMPLE ICTERIC CHECK 0; SAMPLE LIPEMIA CHECK 0; SODIUM 131 MEQ/L (136-147); UREA NITROGEN (BUN) 8 mg/dL (9-23)
[2016-06-06 09:59] LABS: WHITE BLOOD COUNT 4.1 K/uL (4.1-10.2)
[2016-06-07] VITALS (9 sets, daily range): BP systolic 91–108; BP diastolic 51–73
[2016-06-07 08:44] LABS: HEMATOCRIT 30.9 % (36.0-46.0); MCH 26.7 PG (29.0-34.0); MCHC 31.4 G/DL (30.0-36.0); MCV 85.1 FL (83-99); MEAN PLAT.VOLUME 10.6 uM^3 (9.5-12.4); PLATELET COUNT 66 K/uL (156-360); RBC DIS.WIDTH-CV 16.5 % (11.8-14.6); RBC DIS.WIDTH-SD 50.9 % (39-53); RED BLOOD COUNT 3.63 M/uL (3.80-5.20)
[2016-06-07 08:46] LABS: WHITE BLOOD COUNT 6.1 K/uL (4.1-10.2)
[2016-06-07 09:02] LABS: ALKALINE PHOSPHATASE 77 IU/L (3-129); ANION GAP 8 MEQ/L (2-14); CHLORIDE 104 MEQ/L (99-109); CREATINE KINASE 228 IU/L (1-294); DIRECT BILIRUBIN 0.1 mg/dL (0.0-0.3); GFR ESTIMATE (CALCULATED) > 59 mL/min/; GLUCOSE 74 mg/dL (70-99); LIPASE 64 U/L (1.0-51.0); MAGNESIUM 1.2 mg/dl (1.3-2.7); POTASSIUM 3.6 MEQ/L (3.7-5.4); SAMPLE HEMOLYSIS CHECK 0; SAMPLE ICTERIC CHECK 0; SAMPLE LIPEMIA CHECK 0; SODIUM 129 MEQ/L (136-147); TOTAL BILIRUBIN 0.4 MG/DL (0.0-1.0); UREA NITROGEN (BUN) 7 mg/dL (9-23)
[2016-06-07 09:30] LABS: ANISOCYTOSIS 1+; BAND NEUTROPHILS 41.9 % (0-8.0); BURR CELLS 2+; EOSINOPHIL ABS CT 0; INSTRUMENT ABS NEUTROPHIL CT 5.6 K/uL; OVALOCYTES 1+; PLAT.SUFFICIENCY DECREASED; POIKILOCYTOSIS 2+; SEG.NEUTROPHILS 57.1 % (46.0-76.0); TEAR DROP CELLS 1+
[2016-06-07 18:25] LABS: INFLUENZA A VIRAL ANTIGEN NEGATIVE; INFLUENZA B VIRAL ANTIGEN NEGATIVE
[2016-06-08 03:27] VITALS: BP 111/59
[2016-06-08 06:38] LABS: HEMATOCRIT 25.9 % (36.0-46.0); MCH 26.6 PG (29.0-34.0); MCHC 30.9 G/DL (30.0-36.0); MEAN PLAT.VOLUME 10.3 uM^3 (9.5-12.4); NRBC (%) 0.4 /100 WBC (0-0); PLATELET COUNT 54 K/uL (156-360); RBC DIS.WIDTH-CV 16.7 % (11.8-14.6); RBC DIS.WIDTH-SD 52.5 % (39-53); RED BLOOD COUNT 3.01 M/uL (3.80-5.20); WHITE BLOOD COUNT 4.6 K/uL (4.1-10.2)
[2016-06-08 06:59] LABS: ALKALINE PHOSPHATASE 81 IU/L (3-129); ANION GAP 5 MEQ/L (2-14); CHLORIDE 109 MEQ/L (99-109); GFR ESTIMATE (CALCULATED) > 59 mL/min/; GLUCOSE 86 mg/dL (70-99); POTASSIUM 3.7 MEQ/L (3.7-5.4); SAMPLE HEMOLYSIS CHECK 0; SAMPLE ICTERIC CHECK 0; SAMPLE LIPEMIA CHECK 0; UREA NITROGEN (BUN) 6 mg/dL (9-23)
[2016-06-08 07:08] LABS: SODIUM 136 MEQ/L (136-147); TOTAL BILIRUBIN 0.3 MG/DL (0.0-1.0)
[2016-06-08 07:20] VITALS: BP 101/55
[2016-06-08 09:46] LABS: EOSINOPHIL (%) 0 % (0-5); IMMATURE GRANULOCYTE (%) 0.9 % (0.0-0.7); LYMPHOCYTE COUNT 0.2 K/uL (1.0-2.8); MONOCYTE (%) 5.7 % (3-12); MONOCYTE COUNT 0.3 K/uL (0-0.8); NEUTROPHIL (%) 87.9 % (45-76)
[2016-06-08 11:33] VITALS: BP 90/52
[2016-06-08 16:24] VITALS: BP 94/56
[2016-06-08 20:00] VITALS: BP 91/52
[2016-06-09 00:15] VITALS: BP 108/58
[2016-06-09 03:30] VITALS: BP 105/59
[2016-06-09 07:54] VITALS: BP 105/52
[2016-06-09 09:25] LABS: EOSINOPHIL (%) 0.4 % (0-5); HEMATOCRIT 29.6 % (36.0-46.0); IMMATURE GRANULOCYTE (%) 1.1 % (0.0-0.7); INSTRUMENT ABS NEUTROPHIL CT 2.3 K/uL; LYMPHOCYTE COUNT 0.2 K/uL (1.0-2.8); MCH 26.5 PG (29.0-34.0); MCHC 30.7 G/DL (30.0-36.0); MCV 86.3 FL (83-99); MONOCYTE (%) 8.1 % (3-12); MONOCYTE COUNT 0.2 K/uL (0-0.8); NEUTROPHIL COUNT 2.3 K/uL (1.8-6.4); PLATELET COUNT 70 K/uL (156-360); RBC DIS.WIDTH-CV 17.2 % (11.8-14.6); RBC DIS.WIDTH-SD 54.1 % (39-53); RED BLOOD COUNT 3.43 M/uL (3.80-5.20)
[2016-06-09 09:31] LABS: WHITE BLOOD COUNT 2.9 K/uL (4.1-10.2)
[2016-06-09 09:42] LABS: ANION GAP 4 MEQ/L (2-14); CHLORIDE 109 MEQ/L (99-109); GFR ESTIMATE (CALCULATED) > 59 mL/min/; GLUCOSE 104 mg/dL (70-99); POTASSIUM 3.4 MEQ/L (3.7-5.4); SAMPLE HEMOLYSIS CHECK 0; SAMPLE ICTERIC CHECK 0; SAMPLE LIPEMIA CHECK 0; SODIUM 135 MEQ/L (136-147); UREA NITROGEN (BUN) 4 mg/dL (9-23)
[2016-06-09 14:14] VITALS: BP 109/77
[2016-06-09 20:00] VITALS: BP 114/74
[2016-06-09 23:30] VITALS: BP 102/67
[2016-06-10 03:15] VITALS: BP 93/59
[2016-06-10 07:50] VITALS: BP 100/71
[2016-06-10 09:28] LABS: EOSINOPHIL (%) 0.3 % (0-5); HEMATOCRIT 30.5 % (36.0-46.0); IMMATURE GRANULOCYTE (%) 1.7 % (0.0-0.7); IMMATURE GRANULOCYTE COUNT 0.1 K/uL; INSTRUMENT ABS NEUTROPHIL CT 2.2 K/uL; LYMPHOCYTE COUNT 0.3 K/uL (1.0-2.8); MCHC 31.5 G/DL (30.0-36.0); MCV 85.9 FL (83-99); MEAN PLAT.VOLUME 11.6 uM^3 (9.5-12.4); MONOCYTE (%) 12.9 % (3-12); MONOCYTE COUNT 0.4 K/uL (0-0.8); NEUTROPHIL (%) 73.9 % (45-76); NEUTROPHIL COUNT 2.2 K/uL (1.8-6.4); RBC DIS.WIDTH-CV 17.3 % (11.8-14.6); RBC DIS.WIDTH-SD 54.1 % (39-53); RED BLOOD COUNT 3.55 M/uL (3.80-5.20)
[2016-06-10 09:29] LABS: PLATELET COUNT 98 K/uL (156-360)
[2016-06-10 10:02] LABS: ALKALINE PHOSPHATASE 100 IU/L (3-129); ANION GAP 4 MEQ/L (2-14); CHLORIDE 109 MEQ/L (99-109); GFR ESTIMATE (CALCULATED) > 59 mL/min/; GLUCOSE 102 mg/dL (70-99); POTASSIUM 3.6 MEQ/L (3.7-5.4); SAMPLE HEMOLYSIS CHECK 0; SAMPLE ICTERIC CHECK 0; SAMPLE LIPEMIA CHECK 0; SODIUM 136 MEQ/L (136-147); UREA NITROGEN (BUN) 6 mg/dL (9-23)
[2016-06-10 10:03] LABS: TOTAL BILIRUBIN 0.2 MG/DL (0.0-1.0)
[2016-06-10 12:18] VITALS: BP 99/53
[2016-06-10 16:14] VITALS: BP 122/78
[2016-06-10 19:30] VITALS: BP 112/70
[2016-06-10 23:00] VITALS: BP 110/60
[2016-06-11 02:22] LABS: UR CREATININE CONCENTRATION 25.6 MG/DL
[2016-06-11 03:40] VITALS: BP 113/68
[2016-06-11 08:25] VITALS: BP 111/68
[2016-06-11 08:46] LABS: EOSINOPHIL (%) 0.7 % (0-5); HEMATOCRIT 30.7 % (36.0-46.0); IMMATURE GRANULOCYTE (%) 1.8 % (0.0-0.7); IMMATURE GRANULOCYTE COUNT 0.1 K/uL; INSTRUMENT ABS NEUTROPHIL CT 2.3 K/uL; LYMPHOCYTE COUNT 0.2 K/uL (1.0-2.8); MCH 26.8 PG (29.0-34.0); MCHC 31.3 G/DL (30.0-36.0); MCV 85.8 FL (83-99); MEAN PLAT.VOLUME 10.8 uM^3 (9.5-12.4); MONOCYTE (%) 7.3 % (3-12); MONOCYTE COUNT 0.2 K/uL (0-0.8); NEUTROPHIL (%) 83.6 % (45-76); NEUTROPHIL COUNT 2.3 K/uL (1.8-6.4); PLATELET COUNT 103 K/uL (156-360); RBC DIS.WIDTH-CV 17.2 % (11.8-14.6); RBC DIS.WIDTH-SD 54.7 % (39-53); RED BLOOD COUNT 3.58 M/uL (3.80-5.20); WHITE BLOOD COUNT 2.7 K/uL (4.1-10.2)
[2016-06-11 09:10] LABS: INTERNAL CONTROL VALID? YES
[2016-06-11 09:11] LABS: ALKALINE PHOSPHATASE 94 IU/L (3-129); ANION GAP 5 MEQ/L (2-14); CHLORIDE 104 MEQ/L (99-109); GFR ESTIMATE (CALCULATED) > 59 mL/min/; GLUCOSE 88 mg/dL (70-99); POTASSIUM 3.8 MEQ/L (3.7-5.4); SAMPLE HEMOLYSIS CHECK 0; SAMPLE ICTERIC CHECK 0; SAMPLE LIPEMIA CHECK 0; SODIUM 135 MEQ/L (136-147); UREA NITROGEN (BUN) 6 mg/dL (9-23)
[2016-06-11 09:15] LABS: TOTAL BILIRUBIN 0.3 MG/DL (0.0-1.0)
[2016-06-11 12:25] VITALS: BP 112/76
[2016-06-11 16:11] VITALS: BP 123/82
[2016-06-11 21:10] VITALS: BP 101/89
[2016-06-12 06:18] LABS: HEMATOCRIT 29.2 % (36.0-46.0); MCH 26.7 PG (29.0-34.0); MCHC 31.5 G/DL (30.0-36.0); MCV 84.6 FL (83-99); MEAN PLAT.VOLUME 10.3 uM^3 (9.5-12.4); PLATELET COUNT 103 K/uL (156-360); RBC DIS.WIDTH-CV 16.9 % (11.8-14.6); RBC DIS.WIDTH-SD 52.2 % (39-53); RED BLOOD COUNT 3.45 M/uL (3.80-5.20)
[2016-06-12 06:41] LABS: ANION GAP 6 MEQ/L (2-14); CHLORIDE 99 MEQ/L (99-109); GFR ESTIMATE (CALCULATED) > 59 mL/min/; GLUCOSE 76 mg/dL (70-99); POTASSIUM 3.9 MEQ/L (3.7-5.4); SAMPLE HEMOLYSIS CHECK 0; SAMPLE ICTERIC CHECK 0; SAMPLE LIPEMIA CHECK 0; SODIUM 134 MEQ/L (136-147); UREA NITROGEN (BUN) 7 mg/dL (9-23)
[2016-06-12 07:12] LABS: EOSINOPHIL (%) 0.5 % (0-5); IMMATURE GRANULOCYTE (%) 2.5 % (0.0-0.7); IMMATURE GRANULOCYTE COUNT 0.1 K/uL; INSTRUMENT ABS NEUTROPHIL CT 1.7 K/uL; LYMPHOCYTE COUNT 0.2 K/uL (1.0-2.8); MONOCYTE (%) 5.4 % (3-12); MONOCYTE COUNT 0.1 K/uL (0-0.8); NEUTROPHIL (%) 81.3 % (45-76); NEUTROPHIL COUNT 1.7 K/uL (1.8-6.4)
[2016-06-12 09:53] VITALS: BP 103/58
[2016-06-12 11:11] VITALS: BP 104/61
[2016-06-12 14:52] VITALS: BP 107/65
[2016-06-13 06:45] LABS: HEMATOCRIT 29.9 % (36.0-46.0); MCH 26.3 PG (29.0-34.0); MCHC 31.4 G/DL (30.0-36.0); MCV 83.8 FL (83-99); MEAN PLAT.VOLUME 11.1 uM^3 (9.5-12.4); PLATELET COUNT 102 K/uL (156-360); RBC DIS.WIDTH-CV 16.5 % (11.8-14.6); RED BLOOD COUNT 3.57 M/uL (3.80-5.20)
[2016-06-13 07:06] LABS: ANION GAP 5 MEQ/L (2-14); CHLORIDE 92 MEQ/L (99-109); GFR ESTIMATE (CALCULATED) > 59 mL/min/; GLUCOSE 84 mg/dL (70-99); POTASSIUM 3.9 MEQ/L (3.7-5.4); SAMPLE HEMOLYSIS CHECK 0; SAMPLE ICTERIC CHECK 0; SAMPLE LIPEMIA CHECK 0; SODIUM 130 MEQ/L (136-147); UREA NITROGEN (BUN) 8 mg/dL (9-23)
[2016-06-13 08:05] LABS: EOSINOPHIL (%) 0 % (0-5); IMMATURE GRANULOCYTE (%) 3.5 % (0.0-0.7); IMMATURE GRANULOCYTE COUNT 0.1 K/uL; INSTRUMENT ABS NEUTROPHIL CT 1.7 K/uL; LYMPHOCYTE COUNT 0.2 K/uL (1.0-2.8); MONOCYTE (%) 3.5 % (3-12); MONOCYTE COUNT 0.1 K/uL (0-0.8); NEUTROPHIL COUNT 1.7 K/uL (1.8-6.4)
[2016-06-13 08:22] VITALS: BP 115/71
[2016-06-13 10:38] VITALS: BP 106/51
[2016-06-13 15:00] VITALS: BP 95/54
[2016-06-13 17:35] LABS: ADD MIUA? YES; BILIRUBIN NEGATIVE; BLOOD NEGATIVE; COLOR YELLOW ((YELLOW)); GLUCOSE (STRIP) NEGATIVE; KETONES NEGATIVE; LEUKOCYTES NEGATIVE; NITRITE NEGATIVE; PROTEIN (STRIP) 100; SPECIFIC GRAVITY 1.006 (1.000-1.030); UROBILINOGEN 0.2 MG/DL (0.2-1.0)
[2016-06-13 17:37] LABS: BACTERIA NONE SEEN /HPF; EPITHELIAL CELLS RARE /HPF; MUCUS NONE SEEN /LPF; RED BLOOD CELLS 0-5 /HPF (0-5); UCUL ADDED? NO; WHITE BLOOD CELLS 0-5 /HPF (0-5)
[2016-06-13 17:57] VITALS: BP 114/56
[2016-06-13 20:40] VITALS: BP 92/54
[2016-06-14] VITALS (7 sets, daily range): BP systolic 94–110; BP diastolic 53–72
[2016-06-14 06:40] LABS: MCH 26.2 PG (29.0-34.0); MCHC 30.7 G/DL (30.0-36.0); MCV 85.3 FL (83-99); MEAN PLAT.VOLUME 11.9 uM^3 (9.5-12.4); PLATELET COUNT 92 K/uL (156-360); RBC DIS.WIDTH-CV 16.6 % (11.8-14.6); RBC DIS.WIDTH-SD 51.3 % (39-53); WHITE BLOOD COUNT 1.2 K/uL (4.1-10.2)
[2016-06-14 06:47] LABS: ALKALINE PHOSPHATASE 84 IU/L (3-129); ANION GAP 5 MEQ/L (2-14); CHLORIDE 96 MEQ/L (99-109); GFR ESTIMATE (CALCULATED) > 59 mL/min/; GLUCOSE 117 mg/dL (70-99); MAGNESIUM 1.3 mg/dl (1.3-2.7); POTASSIUM 3.6 MEQ/L (3.7-5.4); SAMPLE HEMOLYSIS CHECK 0; SAMPLE ICTERIC CHECK 0; SAMPLE LIPEMIA CHECK 0; SODIUM 135 MEQ/L (136-147); TOTAL BILIRUBIN 0.2 MG/DL (0.0-1.0); UREA NITROGEN (BUN) 9 mg/dL (9-23)
[2016-06-14 07:17] LABS: ABS NEUTROPHIL COUNT 1.1; EOSINOPHIL ABS CT 0; INSTRUMENT ABS NEUTROPHIL CT 0.9 K/uL; LYMPHOCYTES 1.9 % (15.0-45.0); PLAT.SUFFICIENCY DECREASED; POIKILOCYTOSIS 1+
[2016-06-14 07:19] LABS: BAND NEUTROPHILS 9.7 % (0-8.0); SEG.NEUTROPHILS 85.4 % (46.0-76.0)
[2016-06-15 02:55] VITALS: BP 113/69
[2016-06-15 07:13] VITALS: BP 96/58
[2016-06-15 07:37] LABS: HEMATOCRIT 26.5 % (36.0-46.0); MCH 26.7 PG (29.0-34.0); MCHC 31.3 G/DL (30.0-36.0); MCV 85.2 FL (83-99); PLATELET COUNT 74 K/uL (156-360); RBC DIS.WIDTH-CV 16.5 % (11.8-14.6); RBC DIS.WIDTH-SD 51.3 % (39-53); RED BLOOD COUNT 3.11 M/uL (3.80-5.20)
[2016-06-15 07:40] LABS: WHITE BLOOD COUNT 1.8 K/uL (4.1-10.2)
[2016-06-15 07:49] LABS: ALKALINE PHOSPHATASE 100 IU/L (3-129); ANION GAP 4 MEQ/L (2-14); CHLORIDE 96 MEQ/L (99-109); GFR ESTIMATE (CALCULATED) > 59 mL/min/; GLUCOSE 89 mg/dL (70-99); POTASSIUM 3.5 MEQ/L (3.7-5.4); SAMPLE HEMOLYSIS CHECK 0; SAMPLE ICTERIC CHECK 0; SAMPLE LIPEMIA CHECK 0; SODIUM 133 MEQ/L (136-147); UREA NITROGEN (BUN) 10 mg/dL (9-23)
[2016-06-15 07:54] LABS: TOTAL BILIRUBIN 0.3 MG/DL (0.0-1.0)
[2016-06-15 08:04] LABS: ABS NEUTROPHIL COUNT 1.7; ANISOCYTOSIS 2+; EOSINOPHIL ABS CT 0; HYPOCHROMASIA 2+; INSTRUMENT ABS NEUTROPHIL CT 1.4 K/uL; MACROCYTES 1+; MICROCYTOSIS 1+; OVALOCYTES 2+; PLAT.SUFFICIENCY DECREASED; POIKILOCYTOSIS 2+; POLYCHROMASIA 1+; SCHISTOCYTES 1+; TEAR DROP CELLS 1+
[2016-06-15 08:06] LABS: PLATELET CLUMPS PRESENT
[2016-06-15 16:05] VITALS: BP 90/53
== END 2016-06-15 20:30 | disposition left against medical advice (07) | DRG 545 ==
LOC: EME 09:47 → EDOF 14:13 → 5SOUTH 14:13 → 4EAST 06-06 17:43 → 5EAST 06-14 23:07
PROVIDERS: Emergency Medicine; Hospitalist; Internal Medicine; Internal Medicine Gastroenterology; Internal Medicine Infectious Disease; Internal Medicine Nephrology; Nurse Practitioner Adult Health; Specialist; Student in an Organized Health Care Education/Training Program
DX: M32.19 Other organ or system involvement in systemic lupus erythematosus (principal); A41.9 Sepsis, unspecified organism; E43 Unspecified severe protein-calorie malnutrition; J90 Pleural effusion, not elsewhere classified; D61.818 Other pancytopenia; E87.2 Acidosis; K85.90 Acute pancreatitis without necrosis or infection, unspecified; J18.9 Pneumonia, unspecified organism; M79.1 Myalgia; M33.29 Polymyositis with other organ involvement; K59.00 Constipation, unspecified; Z91.19 Patient's noncompliance with other medical treatment and regimen; B37.81 Candidal esophagitis; R10.84 Generalized abdominal pain; R53.1 Weakness; K76.0 Fatty (change of) liver, not elsewhere classified; R18.8 Other ascites; J98.11 Atelectasis; F41.9 Anxiety disorder, unspecified; F32.9 Major depressive disorder, single episode, unspecified; G40.909 Epilepsy, unspecified, not intractable, without status epilepticus; G89.29 Other chronic pain; Z68.23 Body mass index [BMI] 23.0-23.9, adult; M25.50 Pain in unspecified joint; E88.09 Other disorders of plasma-protein metabolism, not elsewhere classified; J45.909 Unspecified asthma, uncomplicated; M32.14 Glomerular disease in systemic lupus erythematosus; F17.210 Nicotine dependence, cigarettes, uncomplicated; I31.9 Disease of pericardium, unspecified; R10.9 Unspecified abdominal pain; K29.70 Gastritis, unspecified, without bleeding; E86.0 Dehydration; E87.1 Hypo-osmolality and hyponatremia; K52.9 Noninfective gastroenteritis and colitis, unspecified; D63.8 Anemia in other chronic diseases classified elsewhere; Z79.52 Long term (current) use of systemic steroids; I50.32 Chronic diastolic (congestive) heart failure
CPT/HCPCS: 71010; 71250; 74176; 76705; 80048; 80053; 80061; 80076; 81003; 82085 90; 82330; 82550; 82550 91; 82570; 83605; 83690; 83735; 83880; 84100; 84156; 84443; 85014; 85018; 85025; 85027; 85045; 86900; 86901; 86920; 87040; 87070; 87077; 87106; 87147; 87181; 87185; 87186; 87205; 87449; 87502; 88305; 88312; 88342 TC; 93306; 93970; 93975; 94799; 99281; 99285; C9113; J0131; J0330; J0456; J0610; J1100; J1170; J1450; J1650; J1885; J1940; J1956; J2250; J2270; J2405; J2710; J3010; J3475; J7030; J7040; J7050; J7512; J7517; P9016; P9047

== ENCOUNTER 2016-06-17 22:37 | Inpatient (IN) | payer OTHER ==
[~2016-06-17] VITALS: Ht 157.5 cm; Wt 53.8 kg
[2016-06-17 23:25] LABS: HEMATOCRIT 28.9 % (36.0-46.0); MCHC 31.1 G/DL (30.0-36.0); MCV 83.5 FL (83-99); MEAN PLAT.VOLUME 10.6 uM^3 (9.5-12.4); RBC DIS.WIDTH-CV 16.6 % (11.8-14.6); RBC DIS.WIDTH-SD 50.1 % (39-53); RED BLOOD COUNT 3.46 M/uL (3.80-5.20)
[2016-06-17 23:27] LABS: PLATELET COUNT 101 K/uL (156-360); WHITE BLOOD COUNT 2.7 K/uL (4.1-10.2)
[2016-06-17 23:33] LABS: CHLORIDE 99 mEq/L (99-109); POTASSIUM 4.1 mEq/L (3.7-5.4); SODIUM 134 mEq/L (136-147)
[2016-06-17 23:35] LABS: GLUCOSE 96 mg/dL (70-99)
[2016-06-17 23:36] LABS: ANION GAP 6 MEQ/L (2-14)
[2016-06-17 23:37] LABS: TOTAL BILIRUBIN 0.3 mg/dL (0.0-1.0)
[2016-06-17 23:38] LABS: SERUM ETHYL ALCOHOL < 10 mg/dL
[2016-06-17 23:39] LABS: ALKALINE PHOSPHATASE 117 IU/L (3-129); GFR ESTIMATE (CALCULATED) > 59 mL/min/
[2016-06-17 23:41] LABS: UREA NITROGEN (BUN) 9 mg/dL (9-23)
[2016-06-17 23:42] LABS: SALICYLATE < 5.0 MG/DL (15-30)
[2016-06-17 23:43] LABS: LIPASE 144 U/L (1.0-51.0)
[2016-06-17 23:51] LABS: QUANTITATIVE HCG < 4.0 MIU/ML
[2016-06-18 00:10] LABS: ANISOCYTOSIS 1+; EOSINOPHIL (%) 0 % (0-5); IMMATURE GRANULOCYTE (%) 1.5 % (0.0-0.7); INSTRUMENT ABS NEUTROPHIL CT 1.8 K/uL; LYMPHOCYTE COUNT 0.6 K/uL (1.0-2.8); MACROCYTES 1+; MONOCYTE (%) 8.7 % (3-12); MONOCYTE COUNT 0.2 K/uL (0-0.8); NEUTROPHIL (%) 67.2 % (45-76); NEUTROPHIL COUNT 1.8 K/uL (1.8-6.4); OVALOCYTES 1+; PLAT.SUFFICIENCY ADEQUATE; POIKILOCYTOSIS 1+; TEAR DROP CELLS 1+
[2016-06-18 00:36] LABS: ADD MIUA? YES; BILIRUBIN NEGATIVE; BLOOD NEGATIVE; COLOR STRAW ((YELLOW)); GLUCOSE (STRIP) NEGATIVE; KETONES NEGATIVE; LEUKOCYTES NEGATIVE; NITRITE NEGATIVE; PROTEIN (STRIP) 100; SPECIFIC GRAVITY 1.009 (1.000-1.030); UROBILINOGEN 0.2 MG/DL (0.2-1.0)
[2016-06-18 00:38] LABS: BACTERIA RARE /HPF; EPITHELIAL CELLS RARE /HPF; MUCUS TRACE /LPF; RED BLOOD CELLS 0-5 /HPF (0-5); UCUL ADDED? NO; WHITE BLOOD CELLS 0-5 /HPF (0-5)
[2016-06-18 00:47] LABS: AMPHETAMINE NEGATIVE (500 ng/mL); BARBITURATES NEGATIVE (200 ng/mL); BENZODIAZEPINES NEGATIVE (150 ng/mL); COCAINE NEGATIVE (150 ng/mL); INTERNAL CONTROLS VALID? YES; METHADONE NEGATIVE (200 ng/mL); METHAMPHETAMINE NEGATIVE (500 ng/mL); OPIATES (MORPHINE) PRESUMPTIVE POSITIVE (100 ng/mL); OXYCODONE PRESUMPTIVE POSITIVE (100 ng/mL); PHENCYCLIDINE NEGATIVE (25 ng/mL); PROPOXYPHENE NEGATIVE (300 ng/mL); THC CANNABINOIDS NEGATIVE (50 ng/mL); TRICYCLIC ANTIDEPRESSANTS NEGATIVE (300 ng/mL)
[2016-06-18 00:48] LABS: ADD MEDTOX COMMENT Y
[2016-06-18 02:54] LABS: C-REACTIVE PROTEIN 40.7 MG/L (0-10)
[2016-06-18 02:58] LABS: OPIATES QUANTITATIVE VALUE 1698.2 NG/ML
[2016-06-18 05:59] VITALS: BP 101/65
[2016-06-18 07:59] LABS: TROP-I INTERPRETATION NEGATIVE; TROPONIN-I < 0.01 ng/mL (0.0-0.30)
[2016-06-18 08:36] VITALS: BP 140/51
[2016-06-18 11:45] VITALS: BP 104/54
[2016-06-18 12:30] LABS: TROP-I INTERPRETATION NEGATIVE; TROPONIN-I < 0.01 ng/mL (0.0-0.30)
[2016-06-18 13:34] LABS: CREATINE KINASE 56 IU/L (1-294); TOTAL CK 56 IU/L (1-294)
[2016-06-18 13:37] LABS: CK-MB 1.9 ng/mL (0.0-4.9)
[2016-06-18 16:50] VITALS: BP 102/55
[2016-06-18 19:42] VITALS: BP 123/76
[2016-06-18 19:47] LABS: TROP-I INTERPRETATION NEGATIVE; TROPONIN-I < 0.01 ng/mL (0.0-0.30)
[2016-06-18 23:33] VITALS: BP 133/92
[2016-06-19 03:48] VITALS: BP 115/63
[2016-06-19 05:08] LABS: CHLORIDE 101 mEq/L (99-109); POTASSIUM 4.6 mEq/L (3.7-5.4); SODIUM 133 mEq/L (136-147)
[2016-06-19 05:10] LABS: HEMATOCRIT 30.3 % (36.0-46.0); MCH 26.6 PG (29.0-34.0); MCV 85.8 FL (83-99); MEAN PLAT.VOLUME 12.2 uM^3 (9.5-12.4); PLATELET COUNT 102 K/uL (156-360); RBC DIS.WIDTH-CV 16.5 % (11.8-14.6); RBC DIS.WIDTH-SD 51.1 % (39-53); RED BLOOD COUNT 3.53 M/uL (3.80-5.20)
[2016-06-19 05:12] LABS: ANION GAP 6 MEQ/L (2-14)
[2016-06-19 05:14] LABS: ALKALINE PHOSPHATASE 99 IU/L (3-129); GFR ESTIMATE (CALCULATED) > 59 mL/min/
[2016-06-19 05:15] LABS: UREA NITROGEN (BUN) 12 mg/dL (9-23)
[2016-06-19 05:17] LABS: GLUCOSE 252 mg/dL (70-99); TOTAL BILIRUBIN 0.2 mg/dL (0.0-1.0)
[2016-06-19 05:56] LABS: CHLORIDE 100 mEq/L (99-109); POTASSIUM 4.5 mEq/L (3.7-5.4); SODIUM 132 mEq/L (136-147)
[2016-06-19 06:00] LABS: ANION GAP 8 MEQ/L (2-14)
[2016-06-19 06:02] LABS: GFR ESTIMATE (CALCULATED) > 59 mL/min/
[2016-06-19 06:03] LABS: UREA NITROGEN (BUN) 13 mg/dL (9-23)
[2016-06-19 06:13] LABS: GLUCOSE 238 mg/dL (70-99)
[2016-06-19 06:27] LABS: ABS NEUTROPHIL COUNT 0.8; EOSINOPHIL ABS CT 0; INSTRUMENT ABS NEUTROPHIL CT 0.6 K/uL
[2016-06-19 07:03] LABS: ANISOCYTOSIS 1+
[2016-06-19 07:04] LABS: MACROCYTES 1+; OVALOCYTES 1+; PLAT.SUFFICIENCY DECREASED; TEAR DROP CELLS 1+
[2016-06-19 08:11] VITALS: BP 101/65
[2016-06-19 08:39] VITALS: BP 101/65
[2016-06-19 09:16] LABS: HEMATOCRIT 29.2 % (36.0-46.0); MCH 26.9 PG (29.0-34.0); MCHC 31.2 G/DL (30.0-36.0); MCV 86.4 FL (83-99); MEAN PLAT.VOLUME 10.7 uM^3 (9.5-12.4); PLATELET COUNT 87 K/uL (156-360); RBC DIS.WIDTH-CV 16.6 % (11.8-14.6); RED BLOOD COUNT 3.38 M/uL (3.80-5.20)
[2016-06-19 09:24] LABS: WHITE BLOOD COUNT 0.9 K/uL (4.1-10.2)
[2016-06-19 12:22] LABS: ERTH.SED.RATE 41 MM/HR (0-20)
== END 2016-06-19 10:12 | disposition left against medical advice (07) | DRG 871 ==
LOC: EME → EDBD 22:37 → EME 22:37 → EDOF 06-18 04:10 → 3EAST 06-18 05:33
PROVIDERS: Emergency Medicine; Hospitalist; Internal Medicine
DX: A41.01 Sepsis due to Methicillin susceptible Staphylococcus aureus (principal); J10.08 Influenza due to other identified influenza virus with other specified pneumonia; D61.818 Other pancytopenia; K85.90 Acute pancreatitis without necrosis or infection, unspecified; B37.81 Candidal esophagitis; E46 Unspecified protein-calorie malnutrition; E88.09 Other disorders of plasma-protein metabolism, not elsewhere classified; M32.9 Systemic lupus erythematosus, unspecified; F41.9 Anxiety disorder, unspecified; R41.82 Altered mental status, unspecified; R32 Unspecified urinary incontinence; R11.0 Nausea; F32.9 Major depressive disorder, single episode, unspecified; J45.909 Unspecified asthma, uncomplicated; G89.29 Other chronic pain; I10 Essential (primary) hypertension; Z22.321 Carrier or suspected carrier of Methicillin susceptible Staphylococcus aureus; B96.3 Hemophilus influenzae [H. influenzae] as the cause of diseases classified elsewhere; Z91.19 Patient's noncompliance with other medical treatment and regimen; R53.1 Weakness; R10.84 Generalized abdominal pain
CPT/HCPCS: 70450; 71020; 80048; 80053; 81003; 82140; 82550; 82553; 83605; 83690; 84484; 84702; 84999; 85025; 85027; 85651; 86140; 93005; 93970; 99281; 99284; G0480; J1170; J2270; J2405; J2930; J7030; J7050; J7120; J7517

== ENCOUNTER 2016-07-08 18:34 | Emergency (ER) | payer OTHER ==
[~2016-07-08] VITALS: Ht 157.5 cm; Wt 49.0 kg
[2016-07-08 20:20] VITALS: BP 130/87
== END 2016-07-08 21:00 | disposition left against medical advice (07) ==
LOC: EME 18:34
DX: G89.29 Other chronic pain (principal); M54.9 Dorsalgia, unspecified; I10 Essential (primary) hypertension; F32.9 Major depressive disorder, single episode, unspecified; M32.9 Systemic lupus erythematosus, unspecified; Z88.1 Allergy status to other antibiotic agents; Z88.6 Allergy status to analgesic agent; F17.200 Nicotine dependence, unspecified, uncomplicated
CPT/HCPCS: 80048; 83605; 84484; 85027; 87040; 99281; 99284

== ENCOUNTER 2016-07-16 00:24 | Inpatient (IN) | payer OTHER ==
[~2016-07-16] VITALS: Ht 157.5 cm; Wt 50.7 kg
[2016-07-16 01:04] LABS: EOSINOPHIL (%) 0.7 % (0-5); HEMATOCRIT 31.6 % (36.0-46.0); IMMATURE GRANULOCYTE (%) 2.8 % (0.0-0.7); IMMATURE GRANULOCYTE COUNT 0.1 K/uL; INSTRUMENT ABS NEUTROPHIL CT 2.5 K/uL; LYMPHOCYTE COUNT 0.2 K/uL (1.0-2.8); MCH 27.5 PG (29.0-34.0); MCHC 32.3 G/DL (30.0-36.0); MCV 85.2 FL (83-99); MEAN PLAT.VOLUME 9.5 uM^3 (9.5-12.4); MONOCYTE (%) 3.5 % (3-12); MONOCYTE COUNT 0.1 K/uL (0-0.8); NEUTROPHIL COUNT 2.5 K/uL (1.8-6.4); PLATELET COUNT 113 K/uL (156-360); RBC DIS.WIDTH-CV 19.8 % (11.8-14.6); RBC DIS.WIDTH-SD 60.2 % (39-53); RED BLOOD COUNT 3.71 M/uL (3.80-5.20); WHITE BLOOD COUNT 2.9 K/uL (4.1-10.2)
[2016-07-16 01:12] LABS: CHLORIDE 102 mEq/L (99-109); SODIUM 132 mEq/L (136-147)
[2016-07-16 01:13] LABS: GLUCOSE 119 mg/dL (70-99)
[2016-07-16 01:15] LABS: ANION GAP 7 MEQ/L (2-14)
[2016-07-16 01:17] LABS: GFR ESTIMATE (CALCULATED) > 59 mL/min/
[2016-07-16 01:18] LABS: UREA NITROGEN (BUN) 14 mg/dL (9-23)
[2016-07-16 02:09] LABS: ADD MIUA? YES; BILIRUBIN SMALL; BLOOD NEGATIVE; COLOR YELLOW ((YELLOW)); GLUCOSE (STRIP) NEGATIVE; KETONES NEGATIVE; LEUKOCYTES NEGATIVE; NITRITE NEGATIVE; PROTEIN (STRIP) >=500; SPECIFIC GRAVITY 1.016 (1.000-1.030); UROBILINOGEN 0.2 MG/DL (0.2-1.0)
[2016-07-16 02:14] LABS: BACTERIA RARE /HPF; EPITHELIAL CELLS RARE /HPF; HYALINE CASTS 0-5 /LPF; MUCUS NONE SEEN /LPF; RED BLOOD CELLS 0-5 /HPF (0-5); UCUL ADDED? NO; WHITE BLOOD CELLS 0-5 /HPF (0-5)
[2016-07-16 03:24] LABS: INFLUENZA A VIRAL ANTIGEN NEGATIVE; INFLUENZA B VIRAL ANTIGEN NEGATIVE
[2016-07-16 04:34] VITALS: BP 100/57
[2016-07-16 04:45] VITALS: BP 100/57
[2016-07-16 07:31] VITALS: BP 100/64
[2016-07-16 10:37] VITALS: BP 103/52
[2016-07-16 16:03] VITALS: BP 107/66
[2016-07-16 16:20] VITALS: BP 107/66
== END 2016-07-16 17:48 | disposition left against medical advice (07) | DRG 546 ==
LOC: EME 00:24 → EDOF 03:17 → 3EAST 04:35
PROVIDERS: Emergency Medicine
DX: M32.9 Systemic lupus erythematosus, unspecified (principal); F03.90 Unspecified dementia, unspecified severity, without behavioral disturbance, psychotic disturbance, mood disturbance, and anxiety; I25.10 Atherosclerotic heart disease of native coronary artery without angina pectoris; I11.0 Hypertensive heart disease with heart failure; I48.91 Unspecified atrial fibrillation; I50.9 Heart failure, unspecified; J45.909 Unspecified asthma, uncomplicated; I27.2 Other secondary pulmonary hypertension; I25.2 Old myocardial infarction; E78.5 Hyperlipidemia, unspecified; E03.9 Hypothyroidism, unspecified; I07.1 Rheumatic tricuspid insufficiency; Z66 Do not resuscitate; E11.649 Type 2 diabetes mellitus with hypoglycemia without coma; F17.210 Nicotine dependence, cigarettes, uncomplicated; D61.818 Other pancytopenia; I95.9 Hypotension, unspecified; M51.34 Other intervertebral disc degeneration, thoracic region
CPT/HCPCS: 71010; 80048; 81003; 83605; 85025; 87040; 87502; 93005; 99281; 99285; J0692; J1100; J1170; J1200; J1650; J2270; J2405; J2765; J2930; J3010; J3370; J7030; J7050; J7517

== ENCOUNTER 2016-07-28 14:27 | Emergency (ER) | payer OTHER ==
[~2016-07-28] VITALS: Ht 157.5 cm; Wt 48.1 kg
[2016-07-28 16:08] VITALS: BP 126/83
== END 2016-07-28 16:11 | disposition left against medical advice (07) ==
LOC: EME 14:27
DX: E86.0 Dehydration (principal); R00.0 Tachycardia, unspecified; I10 Essential (primary) hypertension; F17.200 Nicotine dependence, unspecified, uncomplicated
CPT/HCPCS: 80048; 81003; 82550; 84702; 85025; 99281; 99282

== ENCOUNTER 2016-07-29 02:46 | Emergency (ER) | payer OTHER ==
[~2016-07-29] VITALS: Ht 157.5 cm; Wt 48.1 kg
[2016-07-29 03:59] LABS: CHLORIDE 101 mEq/L (99-109); POTASSIUM 4.8 mEq/L (3.7-5.4); SODIUM 136 mEq/L (136-147)
[2016-07-29 04:00] LABS: GLUCOSE 145 mg/dL (70-99)
[2016-07-29 04:02] LABS: ANION GAP 11 MEQ/L (2-14)
[2016-07-29 04:04] LABS: GFR ESTIMATE (CALCULATED) > 59 mL/min/
[2016-07-29 04:05] LABS: UREA NITROGEN (BUN) 20 mg/dL (9-23)
[2016-07-29 04:07] LABS: HEMATOCRIT 33.2 % (36.0-46.0); MCH 28.5 PG (29.0-34.0); MCHC 31.9 G/DL (30.0-36.0); MCV 89.2 FL (83-99); MEAN PLAT.VOLUME 10.1 uM^3 (9.5-12.4); PLATELET COUNT 187 K/uL (156-360); RBC DIS.WIDTH-CV 20.4 % (11.8-14.6); RBC DIS.WIDTH-SD 66.9 % (39-53); RED BLOOD COUNT 3.72 M/uL (3.80-5.20); WHITE BLOOD COUNT 3.3 K/uL (4.1-10.2)
[2016-07-29 04:12] LABS: TROP-I INTERPRETATION NEGATIVE; TROPONIN-I < 0.01 ng/mL (0.0-0.30)
[2016-07-29 05:57] VITALS: BP 113/68
== END 2016-07-29 05:58 | disposition home or self-care (01) ==
LOC: EME 02:46
PROVIDERS: Emergency Medicine
DX: E86.0 Dehydration (principal); J45.909 Unspecified asthma, uncomplicated; I10 Essential (primary) hypertension; R56.9 Unspecified convulsions; M32.9 Systemic lupus erythematosus, unspecified; F17.200 Nicotine dependence, unspecified, uncomplicated
CPT/HCPCS: 71020; 80048; 83880; 84484; 85027; 93005; 99281; 99285; J7030; J7050

== ENCOUNTER 2016-07-30 20:25 | Inpatient (IN) | payer OTHER ==
[~2016-07-30] VITALS: Ht 157.5 cm; Wt 60.8 kg
[2016-07-30 22:21] LABS: HEMATOCRIT 30.2 % (36.0-46.0); MCH 28.7 PG (29.0-34.0); MCHC 32.1 G/DL (30.0-36.0); MCV 89.3 FL (83-99); RBC DIS.WIDTH-CV 20.4 % (11.8-14.6); RBC DIS.WIDTH-SD 66.4 % (39-53); RED BLOOD COUNT 3.38 M/uL (3.80-5.20); WHITE BLOOD COUNT 2.6 K/uL (4.1-10.2)
[2016-07-30 22:31] LABS: CHLORIDE 103 mEq/L (99-109); POTASSIUM 4.2 mEq/L (3.7-5.4); SODIUM 136 mEq/L (136-147)
[2016-07-30 22:35] LABS: ANION GAP 8 MEQ/L (2-14); TOTAL BILIRUBIN 0.2 mg/dL (0.0-1.0)
[2016-07-30 22:36] LABS: GLUCOSE 75 mg/dL (70-99)
[2016-07-30 22:37] LABS: ALKALINE PHOSPHATASE 70 IU/L (3-129); GFR ESTIMATE (CALCULATED) > 59 mL/min/
[2016-07-30 22:38] LABS: UREA NITROGEN (BUN) 12 mg/dL (9-23)
[2016-07-30 22:42] LABS: TROP-I INTERPRETATION NEGATIVE; TROPONIN-I < 0.01 ng/mL (0.0-0.30)
[2016-07-30 22:46] LABS: PROTHROMBIN TIME 10.2 (9.2-11.2); PTT 25.1 (25-32)
[2016-07-30 23:09] LABS: EOSINOPHIL (%) 0.8 % (0-5); IMMATURE GRANULOCYTE (%) 2.7 % (0.0-0.7); IMMATURE GRANULOCYTE COUNT 0.1 K/uL; INSTRUMENT ABS NEUTROPHIL CT 2.2 K/uL; LYMPHOCYTE COUNT 0.2 K/uL (1.0-2.8); MONOCYTE (%) 1.9 % (3-12); MONOCYTE COUNT 0.1 K/uL (0-0.8); NEUTROPHIL COUNT 2.2 K/uL (1.8-6.4)
[2016-07-30 23:14] LABS: PLAT.SUFFICIENCY ADEQUATE; PLATELET CLUMPS PRESENT - PLATELET COUNT APPEARS ADQ.
[2016-07-31 00:18] LABS: ADD MIUA? YES; BILIRUBIN NEGATIVE; BLOOD NEGATIVE; COLOR YELLOW ((YELLOW)); GLUCOSE (STRIP) NEGATIVE; KETONES NEGATIVE; LEUKOCYTES NEGATIVE; NITRITE NEGATIVE; PROTEIN (STRIP) >=500; SPECIFIC GRAVITY 1.011 (1.000-1.030); UROBILINOGEN 0.2 MG/DL (0.2-1.0)
[2016-07-31 00:23] LABS: BACTERIA RARE /HPF; EPITHELIAL CELLS RARE /HPF; HYALINE CASTS 0-5 /LPF; MUCUS TRACE /LPF; RED BLOOD CELLS 0-5 /HPF (0-5); UCUL ADDED? NO; WHITE BLOOD CELLS 0-5 /HPF (0-5)
[2016-07-31 03:53] VITALS: BP 100/58
[2016-07-31 07:49] VITALS: BP 96/52
[2016-07-31 11:32] VITALS: BP 110/65
[2016-07-31 17:30] VITALS: BP 118/56
[2016-07-31 17:45] VITALS: BP 128/72
== END 2016-07-31 19:55 | disposition left against medical advice (07) | DRG 546 ==
LOC: EME 20:25 → 4EAST 07-31 02:12 → EDOF 07-31 02:12 → 4EAST 07-31 03:40
PROVIDERS: Emergency Medicine
DX: M32.9 Systemic lupus erythematosus, unspecified (principal); D72.819 Decreased white blood cell count, unspecified; M87.9 Osteonecrosis, unspecified; G43.909 Migraine, unspecified, not intractable, without status migrainosus; F32.9 Major depressive disorder, single episode, unspecified; G89.4 Chronic pain syndrome; I10 Essential (primary) hypertension; J45.909 Unspecified asthma, uncomplicated; R13.10 Dysphagia, unspecified; F17.210 Nicotine dependence, cigarettes, uncomplicated; M54.9 Dorsalgia, unspecified; Z88.1 Allergy status to other antibiotic agents; Z79.52 Long term (current) use of systemic steroids
CPT/HCPCS: 71010; 72157; 72158; 73502; 80053; 81003; 83605; 84484; 85025; 85610; 85730; 87040; 93005; 99281; 99285; J2060; J2270; J2405; J2930; J3370; J7030; J7050; J7512; J7517; S0073

== ENCOUNTER 2016-08-22 12:57 | Emergency (ER) | payer OTHER ==
[~2016-08-22] VITALS: Ht 157.5 cm; Wt 48.2 kg
[2016-08-22 16:31] LABS: HEMATOCRIT 29.8 % (36.0-46.0); MCH 29.3 PG (29.0-34.0); MCHC 32.2 G/DL (30.0-36.0); MCV 90.9 FL (83-99); MEAN PLAT.VOLUME 9.3 uM^3 (9.5-12.4); PLATELET COUNT 186 K/uL (156-360); RBC DIS.WIDTH-CV 17.2 % (11.8-14.6); RBC DIS.WIDTH-SD 58.2 % (39-53); RED BLOOD COUNT 3.28 M/uL (3.80-5.20); WHITE BLOOD COUNT 2.9 K/uL (4.1-10.2)
[2016-08-22 16:40] LABS: CHLORIDE 103 mEq/L (99-109); POTASSIUM 4.3 mEq/L (3.7-5.4); SODIUM 135 mEq/L (136-147)
[2016-08-22 16:42] LABS: GLUCOSE 75 mg/dL (70-99)
[2016-08-22 16:43] LABS: ANION GAP 10 MEQ/L (2-14)
[2016-08-22 16:44] LABS: TOTAL BILIRUBIN 0.2 mg/dL (0.0-1.0)
[2016-08-22 16:45] LABS: ALKALINE PHOSPHATASE 80 IU/L (3-129)
[2016-08-22 16:46] LABS: GFR ESTIMATE (CALCULATED) > 59 mL/min/
[2016-08-22 16:47] LABS: UREA NITROGEN (BUN) 15 mg/dL (9-23)
[2016-08-22 16:55] LABS: ADD MIUA? YES; BILIRUBIN NEGATIVE; BLOOD LARGE; COLOR YELLOW ((YELLOW)); GLUCOSE (STRIP) NEGATIVE; KETONES NEGATIVE; LEUKOCYTES NEGATIVE; NITRITE NEGATIVE; PROTEIN (STRIP) >=500; SPECIFIC GRAVITY 1.015 (1.000-1.030); UROBILINOGEN 0.2 MG/DL (0.2-1.0)
[2016-08-22 17:05] LABS: BACTERIA RARE /HPF; EPITHELIAL CELLS 1+ /HPF; MUCUS TRACE /LPF; UCUL ADDED? NO; WHITE BLOOD CELLS 0-5 /HPF (0-5)
[2016-08-22 19:01] LABS: TROP-I INTERPRETATION NEGATIVE; TROPONIN-I < 0.01 ng/mL (0.0-0.30)
[2016-08-22 20:32] VITALS: BP 109/72
== END 2016-08-22 20:34 | disposition left against medical advice (07) ==
LOC: EME 12:57
PROVIDERS: Physician Assistant
DX: M32.19 Other organ or system involvement in systemic lupus erythematosus (principal); R94.31 Abnormal electrocardiogram [ECG] [EKG]; R00.0 Tachycardia, unspecified; I10 Essential (primary) hypertension; F17.200 Nicotine dependence, unspecified, uncomplicated; Z53.20 Procedure and treatment not carried out because of patient's decision for unspecified reasons
CPT/HCPCS: 71020; 80053; 81003; 83605; 84484; 85027; 93005; 99281; 99285; J2270; J2930; J7030

== ENCOUNTER 2016-08-26 21:55 | Observation (INO) | payer OTHER ==
[~2016-08-26] VITALS: Ht 157.5 cm; Wt 52.9 kg
[2016-08-26 22:37] LABS: HEMATOCRIT 31.4 % (36.0-46.0); MCH 28.9 PG (29.0-34.0); MCHC 32.2 G/DL (30.0-36.0); MCV 89.7 FL (83-99); MEAN PLAT.VOLUME 9.4 uM^3 (9.5-12.4); PLATELET COUNT 214 K/uL (156-360); RBC DIS.WIDTH-CV 16.5 % (11.8-14.6); RBC DIS.WIDTH-SD 54.4 % (39-53); WHITE BLOOD COUNT 3.4 K/uL (4.1-10.2)
[2016-08-26 22:45] LABS: CHLORIDE 102 mEq/L (99-109); POTASSIUM 3.8 mEq/L (3.7-5.4); SODIUM 134 mEq/L (136-147)
[2016-08-26 22:47] LABS: GLUCOSE 92 mg/dL (70-99)
[2016-08-26 22:48] LABS: ANION GAP 9 MEQ/L (2-14)
[2016-08-26 22:51] LABS: GFR ESTIMATE (CALCULATED) > 59 mL/min/
[2016-08-26 22:52] LABS: UREA NITROGEN (BUN) 10 mg/dL (9-23)
[2016-08-26 23:02] LABS: TROP-I INTERPRETATION NEGATIVE; TROPONIN-I < 0.01 ng/mL (0.0-0.30)
[2016-08-27 04:02] LABS: ADD MIUA? YES; BILIRUBIN NEGATIVE; BLOOD NEGATIVE; COLOR YELLOW ((YELLOW)); GLUCOSE (STRIP) NEGATIVE; KETONES NEGATIVE; LEUKOCYTES NEGATIVE; NITRITE NEGATIVE; PROTEIN (STRIP) >=500; SPECIFIC GRAVITY 1.011 (1.000-1.030); UROBILINOGEN 0.2 MG/DL (0.2-1.0)
[2016-08-27 04:05] LABS: BACTERIA NONE SEEN /HPF; EPITHELIAL CELLS RARE /HPF; MUCUS TRACE /LPF; RED BLOOD CELLS 0-5 /HPF (0-5); WHITE BLOOD CELLS 0-5 /HPF (0-5)
[2016-08-27 04:19] VITALS: BP 95/50
[2016-08-27 05:41] LABS: HEMATOCRIT 26.5 % (36.0-46.0); MCH 29.4 PG (29.0-34.0); MCHC 32.1 G/DL (30.0-36.0); MCV 91.7 FL (83-99); MEAN PLAT.VOLUME 9.7 uM^3 (9.5-12.4); PLATELET COUNT 234 K/uL (156-360); RBC DIS.WIDTH-CV 16.7 % (11.8-14.6); RBC DIS.WIDTH-SD 56.1 % (39-53); RED BLOOD COUNT 2.89 M/uL (3.80-5.20); WHITE BLOOD COUNT 2.3 K/uL (4.1-10.2)
[2016-08-27 06:12] LABS: ALKALINE PHOSPHATASE 53 IU/L (3-129); ANION GAP 7 MEQ/L (2-14); CHLORIDE 103 MEQ/L (99-109); GFR ESTIMATE (CALCULATED) > 59 mL/min/; GLUCOSE 81 mg/dL (70-99); POTASSIUM 3.8 MEQ/L (3.7-5.4); SAMPLE HEMOLYSIS CHECK 0; SAMPLE ICTERIC CHECK 0; SAMPLE LIPEMIA CHECK 0; SODIUM 134 MEQ/L (136-147); TOTAL BILIRUBIN 0.2 MG/DL (0.0-1.0); UREA NITROGEN (BUN) 10 mg/dL (9-23)
[2016-08-27 06:23] LABS: TROP-I INTERPRETATION NEGATIVE; TROPONIN-I < 0.01 ng/mL (0.0-0.30)
[2016-08-27 08:30] VITALS: BP 87/52
[2016-08-27 11:07] LABS: TROP-I INTERPRETATION NEGATIVE; TROPONIN-I < 0.01 ng/mL (0.0-0.30)
[2016-08-27] MEDS ORDERED: MYCOPHENOLATE500 MG PO (11:28)
[2016-08-27] MEDS ORDERED: HYDROXYCHLOROQ200 MG PO (11:28)
[2016-08-27] MEDS ORDERED: LISINOPRIL5 MG PO (11:28)
[2016-08-27] MEDS ORDERED: RANITIDINE HCL150 MG PO (11:28)
[2016-08-27] MEDS ORDERED: PREDNISONE20 MG PO (11:28)
[2016-08-27] MEDS ORDERED: RELAFEN750 MG PO (11:29)
[2016-08-27] MEDS ORDERED: ROBAXIN750 MG PO (11:30)
[2016-08-27 11:57] VITALS: BP 97/51
== END 2016-08-27 13:07 | disposition home or self-care (01) ==
LOC: EME 21:55 → EDOF 08-27 03:04 → 5WEST 08-27 04:05
PROVIDERS: Internal Medicine
DX: R07.9 Chest pain, unspecified (principal); M54.9 Dorsalgia, unspecified; J45.909 Unspecified asthma, uncomplicated; F32.9 Major depressive disorder, single episode, unspecified; I10 Essential (primary) hypertension; G43.909 Migraine, unspecified, not intractable, without status migrainosus; M32.9 Systemic lupus erythematosus, unspecified; F17.200 Nicotine dependence, unspecified, uncomplicated; R00.0 Tachycardia, unspecified; G40.909 Epilepsy, unspecified, not intractable, without status epilepticus; Z91.19 Patient's noncompliance with other medical treatment and regimen; G89.29 Other chronic pain; D72.819 Decreased white blood cell count, unspecified; M79.1 Myalgia
CPT/HCPCS: 71020; 71275; 80048; 80053; 81003; 84484; 85027; 85379; 93005; 99281; 99285; G0378; J1170; J1200; J1644; J1885; J2270; J7030; J7512; J7517

== ENCOUNTER 2016-09-03 12:00 | Emergency (ER) | payer OTHER ==
[~2016-09-03] VITALS: Ht 157.5 cm; Wt 49.0 kg
[~2016-09-03 12:00] MED LIST changes: +RELAFEN750 MG PO; +ROBAXIN750 MG PO
[2016-09-03 14:29] LABS: CHLORIDE 100 mEq/L (99-109); SODIUM 134 mEq/L (136-147)
[2016-09-03 14:31] LABS: GLUCOSE 95 mg/dL (70-99)
[2016-09-03 14:32] LABS: ANION GAP 9 MEQ/L (2-14)
[2016-09-03 14:33] LABS: HEMATOCRIT 32.4 % (36.0-46.0); MCH 29.5 PG (29.0-34.0); MCV 89.3 FL (83-99); MEAN PLAT.VOLUME 9.9 uM^3 (9.5-12.4); PLATELET COUNT 182 K/uL (156-360); RBC DIS.WIDTH-SD 52.8 % (39-53); TOTAL BILIRUBIN 0.2 mg/dL (0.0-1.0); WHITE BLOOD COUNT 4.3 K/uL (4.1-10.2)
[2016-09-03 14:34] LABS: ADD MIUA? YES; BILIRUBIN NEGATIVE; BLOOD NEGATIVE; COLOR YELLOW ((YELLOW)); GLUCOSE (STRIP) NEGATIVE; KETONES NEGATIVE; LEUKOCYTES NEGATIVE; NITRITE NEGATIVE; PROTEIN (STRIP) >=500; SPECIFIC GRAVITY 1.018 (1.000-1.030); UROBILINOGEN 0.2 MG/DL (0.2-1.0)
[2016-09-03 14:34] LABS: RED BLOOD COUNT 3.63 M/uL (3.80-5.20)
[2016-09-03 14:35] LABS: ALKALINE PHOSPHATASE 62 IU/L (3-129); GFR ESTIMATE (CALCULATED) > 59 mL/min/
[2016-09-03 14:36] LABS: UREA NITROGEN (BUN) 13 mg/dL (9-23)
[2016-09-03 14:39] LABS: TROP-I INTERPRETATION NEGATIVE; TROPONIN-I < 0.01 ng/mL (0.0-0.30)
[2016-09-03 14:43] LABS: BACTERIA NONE SEEN /HPF; EPITHELIAL CELLS RARE /HPF; GRANULAR CASTS 0-5 /LPF; HYALINE CASTS 0-5 /LPF; MUCUS TRACE /LPF; RED BLOOD CELLS NONE SEEN /HPF (0-5); UCUL ADDED? NO; WHITE BLOOD CELLS 0-5 /HPF (0-5)
[2016-09-03 14:44] LABS: QUANTITATIVE HCG < 4.0 MIU/ML
[2016-09-03 14:58] LABS: LIPASE 52 U/L (1.0-51.0)
[2016-09-03 15:19] LABS: ERTH.SED.RATE 56 MM/HR (0-20)
[2016-09-03 15:29] LABS: C-REACTIVE PROTEIN 45.1 MG/L (0-10)
[2016-09-03 16:58] VITALS: BP 111/81
== END 2016-09-03 17:02 | disposition left against medical advice (07) ==
LOC: EME 12:00
PROVIDERS: Emergency Medicine; Physician Assistant Medical
DX: R52 Pain, unspecified (principal); F17.200 Nicotine dependence, unspecified, uncomplicated; M32.9 Systemic lupus erythematosus, unspecified
CPT/HCPCS: 71010; 80053; 81003; 83690; 84484; 84702; 85027; 85651; 86140; 99281; 99285; J1630; J7030

== ENCOUNTER 2016-09-04 03:05 | Emergency (ER) | payer OTHER ==
[~2016-09-04] VITALS: Ht 157.5 cm; Wt 49.0 kg
[2016-09-04 03:56] LABS: HEMATOCRIT 34.2 % (36.0-46.0); MCH 28.9 PG (29.0-34.0); MCHC 32.2 G/DL (30.0-36.0); MCV 89.8 FL (83-99); MEAN PLAT.VOLUME 9.6 uM^3 (9.5-12.4); PLATELET COUNT 186 K/uL (156-360); RBC DIS.WIDTH-CV 15.9 % (11.8-14.6); RBC DIS.WIDTH-SD 52.4 % (39-53); RED BLOOD COUNT 3.81 M/uL (3.80-5.20); WHITE BLOOD COUNT 3.1 K/uL (4.1-10.2)
[2016-09-04 04:08] LABS: CHLORIDE 105 mEq/L (99-109); SODIUM 135 mEq/L (136-147)
[2016-09-04 04:09] LABS: GLUCOSE 105 mg/dL (70-99)
[2016-09-04 04:11] LABS: ANION GAP 7 MEQ/L (2-14)
[2016-09-04 04:13] LABS: GFR ESTIMATE (CALCULATED) > 59 mL/min/
[2016-09-04 04:14] LABS: UREA NITROGEN (BUN) 10 mg/dL (9-23)
[2016-09-04 04:16] LABS: LIPASE 5 U/L (1.0-51.0)
[2016-09-04 14:39] VITALS: BP 118/81
== END 2016-09-04 14:47 | disposition home or self-care (01) ==
LOC: EME 03:05
PROVIDERS: Emergency Medicine
DX: G89.29 Other chronic pain (principal); R00.0 Tachycardia, unspecified; M32.9 Systemic lupus erythematosus, unspecified; E86.0 Dehydration; J45.909 Unspecified asthma, uncomplicated; I10 Essential (primary) hypertension; F17.200 Nicotine dependence, unspecified, uncomplicated
CPT/HCPCS: 80048; 83690; 85027; 99281; 99285; J2270; J2405; J7030

== ENCOUNTER 2016-09-16 19:15 | Inpatient (IN) | payer OTHER ==
[~2016-09-16] VITALS: Ht 157.5 cm; Wt 46.9 kg
[2016-09-16 20:05] LABS: HEMATOCRIT 37.6 % (36.0-46.0); MCH 29.3 PG (29.0-34.0); MCHC 32.4 G/DL (30.0-36.0); MCV 90.2 FL (83-99); MEAN PLAT.VOLUME 10.1 uM^3 (9.5-12.4); PLATELET COUNT 152 K/uL (156-360); RBC DIS.WIDTH-CV 15.1 % (11.8-14.6); RBC DIS.WIDTH-SD 49.7 % (39-53); RED BLOOD COUNT 4.17 M/uL (3.80-5.20); WHITE BLOOD COUNT 3.7 K/uL (4.1-10.2)
[2016-09-16 20:14] LABS: CHLORIDE 94 mEq/L (99-109); POTASSIUM 3.7 mEq/L (3.7-5.4); SODIUM 132 mEq/L (136-147)
[2016-09-16 20:16] LABS: GLUCOSE 110 mg/dL (70-99)
[2016-09-16 20:17] LABS: ANION GAP 11 MEQ/L (2-14)
[2016-09-16 20:18] LABS: TOTAL BILIRUBIN 0.2 mg/dL (0.0-1.0)
[2016-09-16 20:19] LABS: ALKALINE PHOSPHATASE 88 IU/L (3-129)
[2016-09-16 20:20] LABS: GFR ESTIMATE (CALCULATED) > 59 mL/min/
[2016-09-16 20:21] LABS: UREA NITROGEN (BUN) 12 mg/dL (9-23)
[2016-09-16 20:23] LABS: LIPASE 5 U/L (1.0-51.0)
[2016-09-16 20:29] LABS: QUANTITATIVE HCG < 4.0 MIU/ML
[2016-09-16 21:25] LABS: INTERNAL CONTROL VALID? YES; MONOSPOT (MONONUCLEOSIS SEROL) NEGATIVE
[2016-09-16 21:28] LABS: TROP-I INTERPRETATION NEGATIVE; TROPONIN-I < 0.01 ng/mL (0.0-0.30)
[2016-09-16] MEDS ORDERED: VICODIN HP 10-1 EACH PO (23:10)
[2016-09-16] MEDS ORDERED: ZOLPIDEM TARTRAT5 MG PO (23:10)
[2016-09-17] MEDS ORDERED: VENTOLIN HFA18 GM IH (00:03)
[2016-09-17] MEDS ORDERED: HYDROXYCHLOROQ200 MG PO (00:10)
[2016-09-17 00:50] VITALS: BP 122/84
[2016-09-17 04:49] VITALS: BP 107/71
[2016-09-17 07:35] VITALS: BP 112/77
[2016-09-17 10:42] LABS: TROP-I INTERPRETATION NEGATIVE; TROPONIN-I < 0.01 ng/mL (0.0-0.30)
[2016-09-17 12:24] VITALS: BP 141/84
[2016-09-17 12:29] LABS: ADD MIUA? YES; BILIRUBIN NEGATIVE; BLOOD NEGATIVE; COLOR YELLOW ((YELLOW)); GLUCOSE (STRIP) 50; KETONES NEGATIVE; LEUKOCYTES NEGATIVE; NITRITE NEGATIVE; PROTEIN (STRIP) >=500; SPECIFIC GRAVITY 1.023 (1.000-1.030)
[2016-09-17 12:38] LABS: BACTERIA 1+ /HPF; BUDDING YEAST 1+; EPITHELIAL CELLS RARE /HPF; MUCUS TRACE /LPF; RED BLOOD CELLS 0-5 /HPF (0-5); WHITE BLOOD CELLS 0-5 /HPF (0-5)
[2016-09-17 13:01] VITALS: BP 135/82
[2016-09-17 15:08] LABS: AMPHETAMINES QUANT VALUE 0 NG/ML; BARBITUATES QUANT VALUE 0 NG/ML; BENZODIAZEPINES QUANT VALUE 0 NG/ML; BENZODIAZEPINES, URINE SCREEN Negative (200 ng/mL); PHENCYCLIDINE QUANT VALUE 0 NG/ML
== END 2016-09-17 15:06 | disposition left against medical advice (07) | DRG 546 ==
LOC: EME 19:15 → EDOF 23:59 → ENRESERV 09-17 00:02 → 5WEST 09-17 00:39 → ENRESERV 09-17 08:47 → 5WEST 09-17 15:06
PROVIDERS: Emergency Medicine; Hospitalist
DX: M32.9 Systemic lupus erythematosus, unspecified (principal); M79.89 Other specified soft tissue disorders; Z68.1 Body mass index [BMI] 19.9 or less, adult; E83.51 Hypocalcemia; J45.909 Unspecified asthma, uncomplicated; R56.9 Unspecified convulsions; R11.2 Nausea with vomiting, unspecified; E46 Unspecified protein-calorie malnutrition; E11.9 Type 2 diabetes mellitus without complications; F32.9 Major depressive disorder, single episode, unspecified; D72.810 Lymphocytopenia; I10 Essential (primary) hypertension; L29.9 Pruritus, unspecified; F17.200 Nicotine dependence, unspecified, uncomplicated; Z79.1 Long term (current) use of non-steroidal anti-inflammatories (NSAID); Z79.899 Other long term (current) drug therapy; Z87.01 Personal history of pneumonia (recurrent); R00.0 Tachycardia, unspecified
CPT/HCPCS: 71020; 71275; 80048; 80053; 80306 90; 81003; 82306; 83605; 83690; 84484; 84702; 85027; 85379; 85651; 86140; 86308; 87077; 87086; 87186; 87651 90; 93005; 99202; 99281; 99285; G0378; G0480; J1170; J2270; J2765; J2930; J7030; J7517

== ENCOUNTER 2016-09-29 17:41 | Emergency (ER) | payer OTHER ==
[~2016-09-29] VITALS: Ht 157.5 cm; Wt 45.5 kg
[~2016-09-29 17:41] MED LIST changes: +VICODIN HP 10-1 EACH PO; +ZOLPIDEM TARTRAT5 MG PO
[2016-09-29 19:41] LABS: HEMATOCRIT 37.3 % (36.0-46.0); MCH 28.5 PG (29.0-34.0); MCHC 31.9 G/DL (30.0-36.0); MCV 89.4 FL (83-99); MEAN PLAT.VOLUME 10.9 uM^3 (9.5-12.4); PLATELET COUNT 240 K/uL (156-360); RBC DIS.WIDTH-CV 14.4 % (11.8-14.6); RBC DIS.WIDTH-SD 47.2 % (39-53); RED BLOOD COUNT 4.17 M/uL (3.80-5.20); WHITE BLOOD COUNT 5.6 K/uL (4.1-10.2)
[2016-09-29 20:11] LABS: CHLORIDE 95 mEq/L (99-109); POTASSIUM 3.9 mEq/L (3.7-5.4); SODIUM 136 mEq/L (136-147)
[2016-09-29 20:12] LABS: GLUCOSE 107 mg/dL (70-99)
[2016-09-29 20:14] LABS: ANION GAP 14 MEQ/L (2-14)
[2016-09-29 20:16] LABS: GFR ESTIMATE (CALCULATED) > 59 mL/min/
[2016-09-29 20:17] LABS: UREA NITROGEN (BUN) 11 mg/dL (9-23)
[2016-09-29 20:24] LABS: QUANTITATIVE HCG < 4.0 MIU/ML
[2016-09-29 20:29] LABS: ADD MIUA? YES; BILIRUBIN NEGATIVE; BLOOD NEGATIVE; COLOR YELLOW ((YELLOW)); GLUCOSE (STRIP) NEGATIVE; KETONES 5; LEUKOCYTES NEGATIVE; NITRITE NEGATIVE; PROTEIN (STRIP) >=500; SPECIFIC GRAVITY 1.025 (1.000-1.030); UROBILINOGEN 0.2 MG/DL (0.2-1.0)
[2016-09-29 20:37] LABS: BACTERIA RARE /HPF; EPITHELIAL CELLS 1+ /HPF; GRANULAR CASTS 15-20 /LPF; MUCUS TRACE /LPF; RED BLOOD CELLS 0-5 /HPF (0-5)
[2016-09-29 23:05] VITALS: BP 119/80
== END 2016-09-29 23:15 | disposition home or self-care (01) ==
LOC: EME 17:41
PROVIDERS: Nurse Practitioner Family
DX: R52 Pain, unspecified (principal); I10 Essential (primary) hypertension; J45.909 Unspecified asthma, uncomplicated; M32.9 Systemic lupus erythematosus, unspecified; F17.200 Nicotine dependence, unspecified, uncomplicated
CPT/HCPCS: 80048; 81003; 84702; 85027; 99281; 99284; J2270; J2405; J7030; Q0169

== ENCOUNTER 2016-10-02 04:17 | Emergency (ER) | payer OTHER ==
[~2016-10-02] VITALS: Ht 157.5 cm; Wt 45.5 kg
[2016-10-02 06:06] LABS: ADD MIUA? YES; BILIRUBIN NEGATIVE; BLOOD NEGATIVE; COLOR YELLOW ((YELLOW)); GLUCOSE (STRIP) NEGATIVE; KETONES NEGATIVE; LEUKOCYTES NEGATIVE; NITRITE NEGATIVE; PROTEIN (STRIP) >=500; SPECIFIC GRAVITY 1.015 (1.000-1.030); UROBILINOGEN 0.2 MG/DL (0.2-1.0)
[2016-10-02 06:11] LABS: HEMATOCRIT 40.8 % (36.0-46.0); MCH 28.8 PG (29.0-34.0); MCHC 31.9 G/DL (30.0-36.0); MCV 90.3 FL (83-99); MEAN PLAT.VOLUME 10.6 uM^3 (9.5-12.4); PLATELET COUNT 188 K/uL (156-360); RBC DIS.WIDTH-CV 14.9 % (11.8-14.6); RBC DIS.WIDTH-SD 49.1 % (39-53); RED BLOOD COUNT 4.52 M/uL (3.80-5.20); WHITE BLOOD COUNT 4.3 K/uL (4.1-10.2)
[2016-10-02 06:28] LABS: CHLORIDE 98 mEq/L (99-109); POTASSIUM 3.9 mEq/L (3.7-5.4); SODIUM 135 mEq/L (136-147)
[2016-10-02 06:31] LABS: GLUCOSE 86 mg/dL (70-99)
[2016-10-02 06:32] LABS: ANION GAP 12 MEQ/L (2-14); TOTAL BILIRUBIN 0.2 mg/dL (0.0-1.0)
[2016-10-02 06:32] LABS: BACTERIA NONE SEEN /HPF; EPITHELIAL CELLS RARE /HPF; HYALINE CASTS 0-5 /LPF; MUCUS TRACE /LPF; UCUL ADDED? NO; WHITE BLOOD CELLS 0-5 /HPF (0-5)
[2016-10-02 06:34] LABS: ALKALINE PHOSPHATASE 96 IU/L (3-129); GFR ESTIMATE (CALCULATED) > 59 mL/min/
[2016-10-02 06:35] LABS: UREA NITROGEN (BUN) 9 mg/dL (9-23)
[2016-10-02 06:38] LABS: LIPASE 17 U/L (1.0-51.0)
[2016-10-02 07:40] VITALS: BP 109/77
== END 2016-10-02 08:30 | disposition home or self-care (01) ==
LOC: EME 04:17
PROVIDERS: Emergency Medicine
DX: M79.1 Myalgia (principal); E86.0 Dehydration; M54.9 Dorsalgia, unspecified; R00.0 Tachycardia, unspecified; J45.909 Unspecified asthma, uncomplicated; F17.200 Nicotine dependence, unspecified, uncomplicated
CPT/HCPCS: 80053; 81003; 83690; 85027; 99281; 99284; J2270; J2405; J7030

== ENCOUNTER 2016-10-13 17:59 | Observation (INO) | payer OTHER ==
[~2016-10-13] VITALS: Ht 157.5 cm; Wt 45.0 kg
[2016-10-13 20:19] LABS: HEMATOCRIT 39.5 % (36.0-46.0); MCH 28.6 PG (29.0-34.0); MCHC 32.9 G/DL (30.0-36.0); MCV 86.8 FL (83-99); MEAN PLAT.VOLUME 9.7 uM^3 (9.5-12.4); PLATELET COUNT 168 K/uL (156-360); RBC DIS.WIDTH-CV 15.1 % (11.8-14.6); RBC DIS.WIDTH-SD 48.3 % (39-53); RED BLOOD COUNT 4.55 M/uL (3.80-5.20); WHITE BLOOD COUNT 6.6 K/uL (4.1-10.2)
[2016-10-13 20:26] LABS: CHLORIDE 94 mEq/L (99-109); POTASSIUM 3.7 mEq/L (3.7-5.4); SODIUM 130 mEq/L (136-147)
[2016-10-13 20:29] LABS: GLUCOSE 103 mg/dL (70-99)
[2016-10-13 20:30] LABS: ANION GAP 11 MEQ/L (2-14)
[2016-10-13 20:31] LABS: TOTAL BILIRUBIN 0.2 mg/dL (0.0-1.0)
[2016-10-13 20:32] LABS: ALKALINE PHOSPHATASE 115 IU/L (3-129); GFR ESTIMATE (CALCULATED) > 59 mL/min/
[2016-10-13 20:33] LABS: UREA NITROGEN (BUN) 10 mg/dL (9-23)
[2016-10-13 20:43] LABS: QUANTITATIVE HCG < 4.0 MIU/ML
[2016-10-13 21:52] LABS: TROP-I INTERPRETATION NEGATIVE; TROPONIN-I < 0.01 ng/mL (0.0-0.30)
[2016-10-14 01:50] LABS: ADD MIUA? YES; BILIRUBIN NEGATIVE; BLOOD NEGATIVE; COLOR YELLOW ((YELLOW)); GLUCOSE (STRIP) NEGATIVE; KETONES NEGATIVE; LEUKOCYTES NEGATIVE; NITRITE NEGATIVE; PROTEIN (STRIP) 100; SPECIFIC GRAVITY 1.026 (1.000-1.030); UROBILINOGEN 0.2 MG/DL (0.2-1.0)
[2016-10-14 02:12] LABS: BACTERIA 1+ /HPF; EPITHELIAL CELLS RARE /HPF; HYALINE CASTS 0-5 /LPF; MUCUS TRACE /LPF; RED BLOOD CELLS 0-5 /HPF (0-5); UCUL ADDED? NO; WHITE BLOOD CELLS 0-5 /HPF (0-5)
[2016-10-14 02:22] LABS: AMPHETAMINES QUANT VALUE 0 NG/ML; BARBITUATES QUANT VALUE 0 NG/ML; BENZODIAZEPINES QUANT VALUE 0 NG/ML; BENZODIAZEPINES, URINE SCREEN Negative (200 ng/mL); MARIJUANA QUANT VALUE 0 NG/ML; PHENCYCLIDINE QUANT VALUE 0 NG/ML
[2016-10-14 02:58] VITALS: BP 113/76
[2016-10-14 05:57] LABS: EOSINOPHIL (%) 0.5 % (0-5); HEMATOCRIT 32.5 % (36.0-46.0); IMMATURE GRANULOCYTE (%) 0.7 % (0.0-0.7); INSTRUMENT ABS NEUTROPHIL CT 3.4 K/uL; LYMPHOCYTE COUNT 0.5 K/uL (1.0-2.8); MCH 28.5 PG (29.0-34.0); MCHC 31.7 G/DL (30.0-36.0); MEAN PLAT.VOLUME 10.9 uM^3 (9.5-12.4); MONOCYTE (%) 4.7 % (3-12); MONOCYTE COUNT 0.2 K/uL (0-0.8); NEUTROPHIL (%) 82.9 % (45-76); NEUTROPHIL COUNT 3.4 K/uL (1.8-6.4); PLATELET COUNT 138 K/uL (156-360); RBC DIS.WIDTH-CV 15.4 % (11.8-14.6); RBC DIS.WIDTH-SD 50.7 % (39-53); RED BLOOD COUNT 3.61 M/uL (3.80-5.20); WHITE BLOOD COUNT 4.1 K/uL (4.1-10.2)
[2016-10-14 06:04] LABS: ALKALINE PHOSPHATASE 82 IU/L (3-129); ANION GAP 7 MEQ/L (2-14); CHLORIDE 100 MEQ/L (99-109); DIRECT BILIRUBIN 0.1 mg/dL (0.0-0.3); GFR ESTIMATE (CALCULATED) > 59 mL/min/; GLUCOSE 91 mg/dL (70-99); MAGNESIUM 1.2 mg/dl (1.3-2.7); POTASSIUM 3.4 MEQ/L (3.7-5.4); PREALBUMIN 5.2 mg/dL (10-40); SAMPLE HEMOLYSIS CHECK 0; SAMPLE ICTERIC CHECK 0; SAMPLE LIPEMIA CHECK 0; SODIUM 132 MEQ/L (136-147); TOTAL BILIRUBIN 0.2 MG/DL (0.0-1.0); TRIGLYCERIDES 112 MG/DL (Normal: <150); TROP-I INTERPRETATION NEGATIVE; TROPONIN-I < 0.01 ng/mL (0.0-0.30); UREA NITROGEN (BUN) 8 mg/dL (9-23)
[2016-10-14 07:15] VITALS: BP 97/57
[2016-10-14] MEDS ORDERED: PERCOCET 10/1 TABLET PO (08:07)
[2016-10-14 08:25] VITALS: BP 102/56
[2016-10-14 09:59] LABS: TROP-I INTERPRETATION NEGATIVE; TROPONIN-I < 0.01 ng/mL (0.0-0.30)
== END 2016-10-14 11:45 | disposition home or self-care (01) ==
LOC: EME 17:59 → EDOF 10-14 00:18 → ENRESERV 10-14 00:22 → 5WEST 10-14 02:21
PROVIDERS: Emergency Medicine; Hospitalist; Nurse Practitioner Family
DX: R07.9 Chest pain, unspecified (principal); R64 Cachexia; K20.9 Esophagitis, unspecified; R00.0 Tachycardia, unspecified; R11.0 Nausea; M32.9 Systemic lupus erythematosus, unspecified; E46 Unspecified protein-calorie malnutrition; Z86.19 Personal history of other infectious and parasitic diseases; F17.210 Nicotine dependence, cigarettes, uncomplicated; Z79.891 Long term (current) use of opiate analgesic; Z88.8 Allergy status to other drugs, medicaments and biological substances; Z82.49 Family history of ischemic heart disease and other diseases of the circulatory system
CPT/HCPCS: 71010; 71275; 80053; 80306 90; 81003; 82248; 83735; 84100; 84134; 84478; 84484; 84630 90; 84702; 85025; 85027; 85379; 93005; C9113; G0378; J1170; J2270; J2765; J7030

== ENCOUNTER 2016-10-18 14:29 | Inpatient (IN) | payer OTHER ==
[~2016-10-18] VITALS: Ht 157.5 cm; Wt 42.3 kg
[~2016-10-18 14:29] MED LIST changes: +PERCOCET 10/1 TABLET PO
[2016-10-18 15:45] LABS: HEMATOCRIT 38.7 % (36.0-46.0); MCH 28.8 PG (29.0-34.0); MCHC 32.8 G/DL (30.0-36.0); MCV 87.8 FL (83-99); PLATELET COUNT 115 K/uL (156-360); RBC DIS.WIDTH-CV 15.6 % (11.8-14.6); RBC DIS.WIDTH-SD 49.7 % (39-53); RED BLOOD COUNT 4.41 M/uL (3.80-5.20)
[2016-10-18 16:47] LABS: CHLORIDE 100 mEq/L (99-109); POTASSIUM 3.3 mEq/L (3.7-5.4); SODIUM 133 mEq/L (136-147)
[2016-10-18 16:50] LABS: GLUCOSE 95 mg/dL (70-99)
[2016-10-18 16:51] LABS: ANION GAP 10 MEQ/L (2-14)
[2016-10-18 16:52] LABS: TOTAL BILIRUBIN 0.2 mg/dL (0.0-1.0)
[2016-10-18 16:53] LABS: ALKALINE PHOSPHATASE 107 IU/L (3-129); GFR ESTIMATE (CALCULATED) > 59 mL/min/
[2016-10-18 16:54] LABS: UREA NITROGEN (BUN) 7 mg/dL (9-23)
[2016-10-18 16:57] LABS: LIPASE 8 U/L (1.0-51.0)
[2016-10-18] MEDS ORDERED: PREDNISONE20 MG PO (18:54)
[2016-10-18] MEDS ORDERED: BENADRYL25 MG PO (18:55)
[2016-10-18 22:15] VITALS: BP 127/95
[2016-10-18 22:21] VITALS: BP 127/95
[2016-10-18 23:29] VITALS: BP 120/84
[2016-10-19 03:00] LABS: ADD MIUA? YES; BILIRUBIN NEGATIVE; BLOOD NEGATIVE; COLOR YELLOW ((YELLOW)); GLUCOSE (STRIP) NEGATIVE; KETONES NEGATIVE; LEUKOCYTES NEGATIVE; NITRITE NEGATIVE; PROTEIN (STRIP) 100; SPECIFIC GRAVITY 1.013 (1.000-1.030); UROBILINOGEN 0.2 MG/DL (0.2-1.0)
[2016-10-19 03:14] LABS: BACTERIA NONE SEEN /HPF; EPITHELIAL CELLS 1+ /HPF; MUCUS TRACE /LPF; RED BLOOD CELLS 0-5 /HPF (0-5); UCUL ADDED? NO; WHITE BLOOD CELLS 0-5 /HPF (0-5)
[2016-10-19 04:00] VITALS: BP 121/85
[2016-10-19 08:19] VITALS: BP 119/79
[2016-10-19 08:25] LABS: ALKALINE PHOSPHATASE 88 IU/L (3-129); ANION GAP 8 MEQ/L (2-14); CHLORIDE 100 MEQ/L (99-109); GFR ESTIMATE (CALCULATED) > 59 mL/min/; SAMPLE HEMOLYSIS CHECK 0; SAMPLE ICTERIC CHECK 0; SAMPLE LIPEMIA CHECK 0; SODIUM 131 MEQ/L (136-147); TOTAL BILIRUBIN 0.2 MG/DL (0.0-1.0); UREA NITROGEN (BUN) 7 mg/dL (9-23)
[2016-10-19 08:37] LABS: GLUCOSE 171 mg/dL (70-99); POTASSIUM 4.7 MEQ/L (3.7-5.4)
[2016-10-19 11:58] VITALS: BP 134/85
== END 2016-10-19 13:07 | disposition left against medical advice (07) | DRG 545 ==
LOC: EME 14:29 → EDOF 20:33 → ENRESERV 20:40 → EDOF 21:07 → ENRESERV 21:08 → 3EAST 21:46
PROVIDERS: Emergency Medicine; Nurse Practitioner Family; Physician Assistant Medical
DX: M32.9 Systemic lupus erythematosus, unspecified (principal); E43 Unspecified severe protein-calorie malnutrition; E87.1 Hypo-osmolality and hyponatremia; E87.6 Hypokalemia; K92.0 Hematemesis; L98.9 Disorder of the skin and subcutaneous tissue, unspecified; D64.9 Anemia, unspecified; I10 Essential (primary) hypertension; J45.909 Unspecified asthma, uncomplicated; G43.909 Migraine, unspecified, not intractable, without status migrainosus; F41.9 Anxiety disorder, unspecified; G89.29 Other chronic pain; F17.210 Nicotine dependence, cigarettes, uncomplicated; F31.9 Bipolar disorder, unspecified; Z68.1 Body mass index [BMI] 19.9 or less, adult; Z88.1 Allergy status to other antibiotic agents
CPT/HCPCS: 80053; 81003; 83690; 85027; 85651; 99202; 99281; 99285; J0610; J1170; J1200; J2270; J2405; J2930; J3480; J7030; J7050; J7517; S0028

== ENCOUNTER 2016-10-28 11:49 | Observation (INO) | payer OTHER ==
[~2016-10-28] VITALS: Ht 157.5 cm; Wt 38.4 kg
[~2016-10-28 11:49] MED LIST changes: +BENADRYL25 MG PO
[2016-10-28 12:34] LABS: EOSINOPHIL (%) 0.2 % (0-5); HEMATOCRIT 35.5 % (36.0-46.0); IMMATURE GRANULOCYTE (%) 0.6 % (0.0-0.7); INSTRUMENT ABS NEUTROPHIL CT 4.4 K/uL; LYMPHOCYTE COUNT 0.3 K/uL (1.0-2.8); MCH 28.6 PG (29.0-34.0); MCV 86.8 FL (83-99); MEAN PLAT.VOLUME 12.3 uM^3 (9.5-12.4); MONOCYTE (%) 3.8 % (3-12); MONOCYTE COUNT 0.2 K/uL (0-0.8); NEUTROPHIL (%) 89.3 % (45-76); NEUTROPHIL COUNT 4.4 K/uL (1.8-6.4); PLATELET COUNT 143 K/uL (156-360); RBC DIS.WIDTH-CV 15.7 % (11.8-14.6); RBC DIS.WIDTH-SD 49.9 % (39-53); RED BLOOD COUNT 4.09 M/uL (3.80-5.20); WHITE BLOOD COUNT 4.9 K/uL (4.1-10.2)
[2016-10-28 12:47] LABS: CHLORIDE 96 mEq/L (99-109); POTASSIUM 3.8 mEq/L (3.7-5.4); SODIUM 133 mEq/L (136-147)
[2016-10-28 12:49] LABS: GLUCOSE 85 mg/dL (70-99)
[2016-10-28 12:50] LABS: ANION GAP 12 MEQ/L (2-14)
[2016-10-28 12:51] LABS: TOTAL BILIRUBIN 0.2 mg/dL (0.0-1.0)
[2016-10-28 12:53] LABS: ALKALINE PHOSPHATASE 104 IU/L (3-129); GFR ESTIMATE (CALCULATED) > 59 mL/min/
[2016-10-28 12:54] LABS: ERTH.SED.RATE 57 MM/HR (0-20); UREA NITROGEN (BUN) 11 mg/dL (9-23)
[2016-10-28 12:55] LABS: DIRECT BILIRUBIN 0.1 mg/dL (0.0-0.3); TROP-I INTERPRETATION NEGATIVE; TROPONIN-I < 0.01 ng/mL (0.0-0.30)
[2016-10-28 12:56] LABS: LIPASE 6 U/L (1.0-51.0)
[2016-10-28 13:53] LABS: ADD MIUA? YES; BILIRUBIN NEGATIVE; BLOOD NEGATIVE; COLOR YELLOW ((YELLOW)); GLUCOSE (STRIP) NEGATIVE; KETONES NEGATIVE; LEUKOCYTES TRACE; NITRITE NEGATIVE; PROTEIN (STRIP) >=500; SPECIFIC GRAVITY 1.013 (1.000-1.030); UROBILINOGEN 0.2 MG/DL (0.2-1.0)
[2016-10-28 14:09] LABS: EPITHELIAL CELLS 1+ /HPF; RED BLOOD CELLS NONE SEEN /HPF (0-5)
[2016-10-28 14:10] LABS: AMORPHOUS URATES CRYSTALS 1+; BACTERIA 1+ /HPF; CASTS PRESENT /LPF; CRYSTALS PRESENT; MUCUS NONE SEEN /LPF; UCUL ADDED? YES
[2016-10-28] MEDS ORDERED: RANITIDINE HCL150 MG PO (16:58)
[2016-10-28 18:36] LABS: TROP-I INTERPRETATION NEGATIVE; TROPONIN-I < 0.01 ng/mL (0.0-0.30)
[2016-10-28 19:58] VITALS: BP 103/63
[2016-10-28 23:24] VITALS: BP 113/68
[2016-10-29 01:13] LABS: TROP-I INTERPRETATION NEGATIVE; TROPONIN-I < 0.01 ng/mL (0.0-0.30)
[2016-10-29 03:44] VITALS: BP 106/60
[2016-10-29 06:54] LABS: ANION GAP 7 MEQ/L (2-14); CHLORIDE 105 MEQ/L (99-109); GFR ESTIMATE (CALCULATED) > 59 mL/min/; GLUCOSE 93 mg/dL (70-99); POTASSIUM 3.4 MEQ/L (3.7-5.4); SAMPLE HEMOLYSIS CHECK 0; SAMPLE ICTERIC CHECK 0; SAMPLE LIPEMIA CHECK 0; SODIUM 135 MEQ/L (136-147); UREA NITROGEN (BUN) 6 mg/dL (9-23)
[2016-10-29 07:06] LABS: HEMATOCRIT 28.7 % (36.0-46.0); MCH 29.2 PG (29.0-34.0); MCHC 32.4 G/DL (30.0-36.0); MCV 90.3 FL (83-99); MEAN PLAT.VOLUME 10.9 uM^3 (9.5-12.4); PLATELET COUNT 106 K/uL (156-360); RBC DIS.WIDTH-CV 16.1 % (11.8-14.6); RBC DIS.WIDTH-SD 53.8 % (39-53); WHITE BLOOD COUNT 3.2 K/uL (4.1-10.2)
[2016-10-29 07:07] LABS: RED BLOOD COUNT 3.18 M/uL (3.80-5.20)
[2016-10-29 09:29] VITALS: BP 111/66
[2016-10-29 19:47] VITALS: BP 119/68
[2016-10-30 00:44] VITALS: BP 114/66
[2016-10-30 07:51] VITALS: BP 130/85
[2016-10-30 09:03] VITALS: BP 125/69
== END 2016-10-30 10:10 | disposition left against medical advice (07) ==
LOC: EME 11:49 → EDOF 17:35 → 5SOUTH 17:35 → EDOF 17:35 → ENRESERV 17:37 → CANRESERV 17:37 → ENRESERV 17:48 → 5SOUTH 19:35
PROVIDERS: Emergency Medicine; Hospitalist; Physician Assistant Medical
DX: G89.29 Other chronic pain (principal); M32.9 Systemic lupus erythematosus, unspecified; R13.10 Dysphagia, unspecified; R62.7 Adult failure to thrive; E43 Unspecified severe protein-calorie malnutrition; Z68.1 Body mass index [BMI] 19.9 or less, adult; D63.8 Anemia in other chronic diseases classified elsewhere; R11.2 Nausea with vomiting, unspecified; B37.0 Candidal stomatitis; D61.818 Other pancytopenia; K76.0 Fatty (change of) liver, not elsewhere classified; K21.9 Gastro-esophageal reflux disease without esophagitis; I42.9 Cardiomyopathy, unspecified; I10 Essential (primary) hypertension; G40.909 Epilepsy, unspecified, not intractable, without status epilepticus; J45.909 Unspecified asthma, uncomplicated; E53.8 Deficiency of other specified B group vitamins; F32.9 Major depressive disorder, single episode, unspecified; Z87.01 Personal history of pneumonia (recurrent); R00.0 Tachycardia, unspecified; F17.200 Nicotine dependence, unspecified, uncomplicated; Z82.49 Family history of ischemic heart disease and other diseases of the circulatory system; Z79.52 Long term (current) use of systemic steroids; Z92.25 Personal history of immunosuppression therapy; Z88.0 Allergy status to penicillin; Z88.8 Allergy status to other drugs, medicaments and biological substances
CPT/HCPCS: 71020; 80048; 80053; 80076; 81003; 83605; 83690; 83880; 84484; 85014; 85018; 85025; 85027; 85610; 85651; 85730; 87086; 93005; 99281; 99285; G0378; J1170; J1450; J1630; J2270; J7030; J7042; J7512; J7517; S0028

== ENCOUNTER 2016-11-11 15:41 | Observation (INO) | payer OTHER ==
[~2016-11-11] VITALS: Ht 157.5 cm; Wt 42.7 kg
[2016-11-11 16:39] LABS: HEMATOCRIT 28.2 % (36.0-46.0); MCH 29.2 PG (29.0-34.0); MCV 88.4 FL (83-99); MEAN PLAT.VOLUME 10.7 uM^3 (9.5-12.4); RBC DIS.WIDTH-CV 16.6 % (11.8-14.6); RBC DIS.WIDTH-SD 54.1 % (39-53); RED BLOOD COUNT 3.19 M/uL (3.80-5.20)
[2016-11-11 16:40] LABS: PLATELET COUNT 176 K/uL (156-360)
[2016-11-11 16:43] LABS: CHLORIDE 104 mEq/L (99-109); SODIUM 137 mEq/L (136-147)
[2016-11-11 16:45] LABS: GLUCOSE 95 mg/dL (70-99)
[2016-11-11 16:46] LABS: ANION GAP 7 MEQ/L (2-14)
[2016-11-11 16:49] LABS: GFR ESTIMATE (CALCULATED) > 59 mL/min/; UREA NITROGEN (BUN) 10 mg/dL (9-23)
[2016-11-11 19:31] LABS: ADD MIUA? YES; BILIRUBIN NEGATIVE; BLOOD NEGATIVE; COLOR YELLOW ((YELLOW)); GLUCOSE (STRIP) NEGATIVE; KETONES NEGATIVE; LEUKOCYTES NEGATIVE; NITRITE NEGATIVE; PROTEIN (STRIP) 100; SPECIFIC GRAVITY 1.013 (1.000-1.030); UROBILINOGEN 0.2 MG/DL (0.2-1.0)
[2016-11-11 19:36] LABS: BACTERIA RARE /HPF; EPITHELIAL CELLS RARE /HPF; HYALINE CASTS 0-5 /LPF; MUCUS TRACE /LPF; RED BLOOD CELLS 0-5 /HPF (0-5); UCUL ADDED? NO; WHITE BLOOD CELLS 0-5 /HPF (0-5)
[2016-11-11] MEDS ORDERED: NABUMETONE750 MG PO (22:02)
[2016-11-11] MEDS ORDERED: ROBAXIN750 MG PO (22:02)
[2016-11-11] MEDS ORDERED: LISINOPRIL5 MG PO (22:02)
[2016-11-11] MEDS ORDERED: LIDODERM 5% P1 PATCH TD (22:03)
[2016-11-12 00:48] VITALS: BP 118/79
[2016-11-12 03:10] VITALS: BP 112/75
[2016-11-12 05:57] LABS: MCH 29.2 PG (29.0-34.0); MCHC 31.6 G/DL (30.0-36.0); MCV 92.3 FL (83-99); MEAN PLAT.VOLUME 10.2 uM^3 (9.5-12.4); PLATELET COUNT 154 K/uL (156-360); RBC DIS.WIDTH-CV 17.1 % (11.8-14.6); RBC DIS.WIDTH-SD 57.5 % (39-53); RED BLOOD COUNT 2.71 M/uL (3.80-5.20); WHITE BLOOD COUNT 1.7 K/uL (4.1-10.2)
[2016-11-12 06:19] LABS: ANION GAP 6 MEQ/L (2-14); CHLORIDE 110 MEQ/L (99-109); GFR ESTIMATE (CALCULATED) > 59 mL/min/; GLUCOSE 73 mg/dL (70-99); POTASSIUM 3.9 MEQ/L (3.7-5.4); SAMPLE HEMOLYSIS CHECK 0; SAMPLE ICTERIC CHECK 0; SAMPLE LIPEMIA CHECK 0; SODIUM 138 MEQ/L (136-147); UREA NITROGEN (BUN) 6 mg/dL (9-23)
[2016-11-12 07:49] LABS: ALKALINE PHOSPHATASE 72 IU/L (3-129); TOTAL BILIRUBIN 0.1 MG/DL (0.0-1.0)
[2016-11-12 08:45] VITALS: BP 108/55
[2016-11-12 11:43] VITALS: BP 106/71
[2016-11-12 15:28] VITALS: BP 113/76
== END 2016-11-12 16:03 | disposition left against medical advice (07) ==
LOC: EME 15:41 → EDOF 23:14 → ENRESERV 23:18 → EDOF 11-12 00:34 → 5WEST 11-12 00:35
PROVIDERS: Emergency Medicine; Hospitalist
DX: D61.818 Other pancytopenia (principal); M32.9 Systemic lupus erythematosus, unspecified; K20.9 Esophagitis, unspecified; G89.29 Other chronic pain; E46 Unspecified protein-calorie malnutrition; Z68.1 Body mass index [BMI] 19.9 or less, adult; Z79.899 Other long term (current) drug therapy; Z92.25 Personal history of immunosuppression therapy; F32.9 Major depressive disorder, single episode, unspecified; R62.7 Adult failure to thrive; F17.210 Nicotine dependence, cigarettes, uncomplicated; I10 Essential (primary) hypertension; Z86.32 Personal history of gestational diabetes; D50.9 Iron deficiency anemia, unspecified; E53.8 Deficiency of other specified B group vitamins; J45.909 Unspecified asthma, uncomplicated; I47.1 Supraventricular tachycardia; E86.0 Dehydration; Z88.0 Allergy status to penicillin; Z88.1 Allergy status to other antibiotic agents; Z88.5 Allergy status to narcotic agent; Z88.8 Allergy status to other drugs, medicaments and biological substances; N28.9 Disorder of kidney and ureter, unspecified
CPT/HCPCS: 80048; 80076; 81003; 85027; 99281; 99285; G0378; J1170; J2270; J2405; J2920; J7030; J7517

== ENCOUNTER 2016-11-14 08:46 | Emergency (ER) | payer OTHER ==
[~2016-11-14] VITALS: Ht 157.5 cm; Wt 40.0 kg
[~2016-11-14 08:46] MED LIST changes: +LIDODERM 5% P1 PATCH TD; +NABUMETONE750 MG PO
[2016-11-14 11:17] LABS: EOSINOPHIL (%) 1.4 % (0-5); HEMATOCRIT 30.1 % (36.0-46.0); IMMATURE GRANULOCYTE (%) 1.4 % (0.0-0.7); INSTRUMENT ABS NEUTROPHIL CT 1.1 K/uL; LYMPHOCYTE COUNT 0.2 K/uL (1.0-2.8); MCH 29.4 PG (29.0-34.0); MCHC 31.9 G/DL (30.0-36.0); MEAN PLAT.VOLUME 10.3 uM^3 (9.5-12.4); MONOCYTE COUNT 0.1 K/uL (0-0.8); NEUTROPHIL (%) 77.2 % (45-76); NEUTROPHIL COUNT 1.1 K/uL (1.8-6.4); PLATELET COUNT 174 K/uL (156-360); RBC DIS.WIDTH-CV 17.3 % (11.8-14.6); RED BLOOD COUNT 3.27 M/uL (3.80-5.20); WHITE BLOOD COUNT 1.4 K/uL (4.1-10.2)
[2016-11-14 11:25] LABS: CHLORIDE 109 mEq/L (99-109); POTASSIUM 3.5 mEq/L (3.7-5.4); SODIUM 142 mEq/L (136-147)
[2016-11-14 11:27] LABS: GLUCOSE 72 mg/dL (70-99)
[2016-11-14 11:28] LABS: ANION GAP 9 MEQ/L (2-14)
[2016-11-14 11:31] LABS: GFR ESTIMATE (CALCULATED) > 59 mL/min/
[2016-11-14 11:32] LABS: UREA NITROGEN (BUN) 8 mg/dL (9-23)
[2016-11-14 11:34] VITALS: BP 117/85
[2016-11-14 11:44] LABS: ERTH.SED.RATE 35 MM/HR (0-20)
== END 2016-11-14 11:35 | disposition left against medical advice (07) ==
LOC: EME 08:46
PROVIDERS: Emergency Medicine
DX: G89.29 Other chronic pain (principal); F11.20 Opioid dependence, uncomplicated; R62.7 Adult failure to thrive; M32.9 Systemic lupus erythematosus, unspecified; J45.909 Unspecified asthma, uncomplicated; I10 Essential (primary) hypertension; F41.9 Anxiety disorder, unspecified; F32.9 Major depressive disorder, single episode, unspecified; F31.9 Bipolar disorder, unspecified; Z88.0 Allergy status to penicillin; Z88.8 Allergy status to other drugs, medicaments and biological substances; F17.200 Nicotine dependence, unspecified, uncomplicated
CPT/HCPCS: 80048; 81003; 85025; 85651; 90839; 99281; 99283

== ENCOUNTER 2016-11-15 03:25 | Observation (INO) | payer OTHER ==
[~2016-11-15] VITALS: Ht 157.5 cm; Wt 43.4 kg
[2016-11-15 05:27] LABS: CHLORIDE 105 mEq/L (99-109); POTASSIUM 3.4 mEq/L (3.7-5.4); SODIUM 139 mEq/L (136-147)
[2016-11-15 05:29] LABS: GLUCOSE 81 mg/dL (70-99)
[2016-11-15 05:31] LABS: ANION GAP 9 MEQ/L (2-14)
[2016-11-15 05:33] LABS: GFR ESTIMATE (CALCULATED) > 59 mL/min/
[2016-11-15 05:34] LABS: UREA NITROGEN (BUN) 7 mg/dL (9-23)
[2016-11-15 05:44] LABS: HEMATOCRIT 27.2 % (36.0-46.0); MCHC 32.4 G/DL (30.0-36.0); MCV 89.8 FL (83-99); MEAN PLAT.VOLUME 9.3 uM^3 (9.5-12.4); PLATELET COUNT 171 K/uL (156-360); RBC DIS.WIDTH-CV 17.3 % (11.8-14.6); RBC DIS.WIDTH-SD 56.7 % (39-53); RED BLOOD COUNT 3.03 M/uL (3.80-5.20)
[2016-11-15 05:45] LABS: WHITE BLOOD COUNT 1.6 K/uL (4.1-10.2)
[2016-11-15 06:00] LABS: C-REACTIVE PROTEIN 8.3 MG/L (0-10)
[2016-11-15 07:28] LABS: ERTH.SED.RATE 32 MM/HR (0-20)
[2016-11-15 09:08] LABS: MAGNESIUM 1.4 mg/dl (1.3-2.7)
[2016-11-15 09:20] VITALS: BP 110/80
[2016-11-15 12:00] VITALS: BP 104/76
[2016-11-15 16:00] VITALS: BP 122/73
[2016-11-15 19:57] VITALS: BP 115/59
[2016-11-16] VITALS: BP 128/76
[2016-11-16 05:54] LABS: HEMATOCRIT 24.8 % (36.0-46.0); MCH 29.9 PG (29.0-34.0); MCHC 33.1 G/DL (30.0-36.0); MCV 90.5 FL (83-99); MEAN PLAT.VOLUME 10.4 uM^3 (9.5-12.4); PLATELET COUNT 167 K/uL (156-360); RBC DIS.WIDTH-CV 17.2 % (11.8-14.6); RBC DIS.WIDTH-SD 56.9 % (39-53); RED BLOOD COUNT 2.74 M/uL (3.80-5.20)
[2016-11-16 05:56] LABS: WHITE BLOOD COUNT 1.6 K/uL (4.1-10.2)
[2016-11-16 08:56] LABS: ANION GAP 8 MEQ/L (2-14); CHLORIDE 106 MEQ/L (99-109); GFR ESTIMATE (CALCULATED) > 59 mL/min/; SAMPLE HEMOLYSIS CHECK 0; SAMPLE ICTERIC CHECK 0; SAMPLE LIPEMIA CHECK 0; SODIUM 137 MEQ/L (136-147); UREA NITROGEN (BUN) 11 mg/dL (9-23)
[2016-11-16 08:57] LABS: GLUCOSE 110 mg/dL (70-99); POTASSIUM 4.2 MEQ/L (3.7-5.4)
[2016-11-16 09:17] VITALS: BP 115/81
[2016-11-16 11:20] VITALS: BP 134/87
[2016-11-16] MEDS ORDERED: PREDNISONE20 MG PO (11:29)
[2016-11-16] MEDS ORDERED: TRAMADOL HCL50 MG PO (11:29)
[2016-11-16 11:54] LABS: MAGNESIUM 1.7 mg/dl (1.3-2.7)
== END 2016-11-16 12:24 | disposition home or self-care (01) ==
LOC: EME 03:25 → EDOF 08:04 → 5WEST 08:04 → EDOF 08:04 → ENRESERV 08:07 → 5WEST 09:19 → ENRESERV 11:51 → CANRESERV 12:30 → 5WEST 14:29
PROVIDERS: Emergency Medicine; Internal Medicine; Nurse Practitioner Adult Health
DX: G89.29 Other chronic pain (principal); M32.9 Systemic lupus erythematosus, unspecified; I31.9 Disease of pericardium, unspecified; L29.9 Pruritus, unspecified; Z86.19 Personal history of other infectious and parasitic diseases; B37.81 Candidal esophagitis; E87.6 Hypokalemia; R62.7 Adult failure to thrive; E86.0 Dehydration; D50.9 Iron deficiency anemia, unspecified; D72.819 Decreased white blood cell count, unspecified; I10 Essential (primary) hypertension; I42.9 Cardiomyopathy, unspecified; J45.909 Unspecified asthma, uncomplicated; F17.200 Nicotine dependence, unspecified, uncomplicated; Z87.01 Personal history of pneumonia (recurrent); Z82.49 Family history of ischemic heart disease and other diseases of the circulatory system; Z88.8 Allergy status to other drugs, medicaments and biological substances; Z88.0 Allergy status to penicillin
CPT/HCPCS: 80048; 81003; 83735; 85027; 85651; 86140; 99281; 99285; G0378; J3475; J3480; J7030; J7512; J7517

== ENCOUNTER 2017-03-22 15:14 | Emergency (ER) | payer OTHER ==
[~2017-03-22] VITALS: Ht 157.5 cm; Wt 45.6 kg
[2017-03-22 17:16] LABS: BASOPHIL (%) 0 % (0-1); EOSINOPHIL (%) 4.2 % (0-5); EOSINOPHIL COUNT 0.1 K/uL (0-0.3); HEMATOCRIT 30.3 % (36.0-46.0); HEMOGLOBIN 10.2 G/DL (11.9-15.5); IMMATURE GRANULOCYTE (%) 0.6 % (0.0-0.7); LYMPHOCYTE (%) 8.3 % (15-42); LYMPHOCYTE COUNT 0.3 K/uL (1.0-2.8); MCH 28.7 PG (29.0-34.0); MCHC 33.7 G/DL (30.0-36.0); MCV 85.1 FL (83-99); MONOCYTE COUNT 0.1 K/uL (0-0.8); NEUTROPHIL (%) 83.9 % (45-76); NEUTROPHIL COUNT 2.8 K/uL (1.8-6.4); PLATELET COUNT 124 K/uL (156-360); RBC DIS.WIDTH-CV 14.2 % (11.8-14.6); RBC DIS.WIDTH-SD 44.5 % (39-53); RED BLOOD COUNT 3.56 M/uL (3.80-5.20); WHITE BLOOD COUNT 3.4 K/uL (4.1-10.2)
[2017-03-22 17:24] LABS: ALBUMIN 2.7 g/dL (3.2-4.8); CHLORIDE 98 mEq/L (99-109); POTASSIUM 3.7 mEq/L (3.7-5.4); SODIUM 131 mEq/L (136-147)
[2017-03-22 17:25] LABS: MAGNESIUM 1.2 mg/dL (1.3-2.7)
[2017-03-22 17:27] LABS: GLUCOSE 83 mg/dL (70-99); TOTAL PROTEIN 7.3 g/dL (6.4-8.3)
[2017-03-22 17:29] LABS: TOTAL BILIRUBIN 0.3 mg/dL (0.0-1.0)
[2017-03-22 17:30] LABS: ALKALINE PHOSPHATASE 76 IU/L (3-129)
[2017-03-22 17:31] LABS: CREATININE 0.8 mg/dL (0.6-1.3); GFR ESTIMATE (CALCULATED) > 59 mL/min/
[2017-03-22 17:32] LABS: AST (GOT) 28 IU/L (2-34); UREA NITROGEN (BUN) 10 mg/dL (9-23)
[2017-03-22 17:33] LABS: ALT (GPT) 6 IU/L (3-49)
[2017-03-22 17:41] LABS: QUANTITATIVE HCG < 4.0 MIU/ML
[2017-03-22 22:51] LABS: APPEARANCE SL.HAZY ((CLEAR)); BILIRUBIN NEGATIVE; BLOOD LARGE; COLOR YELLOW ((YELLOW)); GLUCOSE (STRIP) NEGATIVE; KETONES 5; LEUKOCYTES NEGATIVE; NITRITE NEGATIVE; PROTEIN (STRIP) 100; UROBILINOGEN 0.2 MG/DL (0.2-1.0)
[2017-03-22 22:56] LABS: BACTERIA NONE SEEN /HPF; EPITHELIAL CELLS 1+ /HPF; MUCUS NONE SEEN /LPF; RED BLOOD CELLS 0-5 /HPF (0-5); UCUL ADDED? NO; WHITE BLOOD CELLS 0-5 /HPF (0-5)
[2017-03-23] MEDS ORDERED: RELAFEN750 MG PO (00:47)
[2017-03-23] MEDS ORDERED: PLAQUENIL200 MG PO (00:47)
[2017-03-23] MEDS ORDERED: PREDNISONE20 MG PO (00:47)
[2017-03-23] MEDS ORDERED: PERCOCET 5/31 TABLET PO (00:47)
[2017-03-23] MEDS ORDERED: ZANTAC150 MG PO (00:47)
[2017-03-23] MEDS ORDERED: CELLCEPT500 MG PO (00:47)
[2017-03-23] MEDS ORDERED: ZOFRAN ODT4 MG PO (00:55)
[2017-03-23 01:12] VITALS: BP 99/76
== END 2017-03-23 01:33 | disposition home or self-care (01) ==
LOC: EME 15:14
PROVIDERS: Emergency Medicine
DX: M32.9 Systemic lupus erythematosus, unspecified (principal); R00.0 Tachycardia, unspecified; E86.0 Dehydration; E83.42 Hypomagnesemia; R11.2 Nausea with vomiting, unspecified; Z91.19 Patient's noncompliance with other medical treatment and regimen; I10 Essential (primary) hypertension; Z88.5 Allergy status to narcotic agent; Z72.0 Tobacco use
CPT/HCPCS: 80053; 81003; 83735; 84702; 85025; 99281; 99285; J2270; J2405; J7040; J7050; J7512; J7517

== ENCOUNTER 2017-05-12 07:45 | Inpatient (IN) | payer OTHER ==
[~2017-05-12] VITALS: Ht 157.5 cm; Wt 42.5 kg
[~2017-05-12 07:45] MED LIST changes: +CELLCEPT500 MG PO
[2017-05-12 08:46] LABS: HEMATOCRIT 32.9 % (36.0-46.0); HEMOGLOBIN 10.6 G/DL (11.9-15.5); MCH 27.7 PG (29.0-34.0); MCHC 32.2 G/DL (30.0-36.0); MCV 85.9 FL (83-99); PLATELET COUNT 52 K/uL (156-360); RBC DIS.WIDTH-CV 16.2 % (11.8-14.6); RED BLOOD COUNT 3.83 M/uL (3.80-5.20); WHITE BLOOD COUNT 2.3 K/uL (4.1-10.2)
[2017-05-12 09:03] LABS: CHLORIDE 98 mEq/L (99-109); SODIUM 134 mEq/L (136-147)
[2017-05-12 09:05] LABS: GLUCOSE 80 mg/dL (70-99)
[2017-05-12 09:08] LABS: CREATININE 1.1 mg/dL (0.6-1.3); GFR ESTIMATE (CALCULATED) > 59 mL/min/
[2017-05-12 09:09] LABS: UREA NITROGEN (BUN) 18 mg/dL (9-23)
[2017-05-12 10:20] LABS: APPEARANCE SL.HAZY ((CLEAR)); BILIRUBIN NEGATIVE; BLOOD NEGATIVE; COLOR YELLOW ((YELLOW)); GLUCOSE (STRIP) NEGATIVE; KETONES NEGATIVE; LEUKOCYTES NEGATIVE; NITRITE NEGATIVE; PROTEIN (STRIP) 100; SPECIFIC GRAVITY 1.019 (1.000-1.030)
[2017-05-12 10:22] LABS: ABS NEUTROPHIL COUNT 1.8; ANISOCYTOSIS 1+; ATYPICAL LYMPHOCYTE 3.2 %; BAND NEUTROPHILS 4.2 % (0-8.0); EOSINOPHIL ABS CT 0.1; EOSINOPHILS 3.2 % (0-5.0); LYMPHOCYTES 7.4 % (15.0-45.0); MONOCYTES 8.4 % (0-9.0); PLAT.SUFFICIENCY DECREASED; POIKILOCYTOSIS 1+; SEG.NEUTROPHILS 73.6 % (46.0-76.0); SMUDGE CELLS 8.4; TEAR DROP CELLS 1+
[2017-05-12 10:42] LABS: BACTERIA RARE /HPF; CALCIUM OXALATE CRYSTALS 1+ /HPF; EPITHELIAL CELLS RARE /HPF; HYALINE CASTS 15-20 /LPF; MUCUS TRACE /LPF; RED BLOOD CELLS 0-5 /HPF (0-5)
[2017-05-12] MEDS ORDERED: PREDNISONE50 MG PO (11:20)
[2017-05-12] MEDS ORDERED: OXYCODONE HCL10 MG PO (11:23)
[2017-05-12 13:06] LABS: QUANTITATIVE HCG < 4.0 MIU/ML
[2017-05-12 23:29] VITALS: BP 112/64
[2017-05-13 07:22] LABS: BASOPHIL (%) 0 % (0-1); EOSINOPHIL (%) 0 % (0-5); HEMATOCRIT 26.1 % (36.0-46.0); LYMPHOCYTE (%) 11.8 % (15-42); LYMPHOCYTE COUNT 0.3 K/uL (1.0-2.8); MCH 27.2 PG (29.0-34.0); MCHC 31.4 G/DL (30.0-36.0); MCV 86.4 FL (83-99); MONOCYTE (%) 4.4 % (3-12); MONOCYTE COUNT 0.1 K/uL (0-0.8); NEUTROPHIL (%) 83.8 % (45-76); NEUTROPHIL COUNT 1.9 K/uL (1.8-6.4); PLATELET COUNT 63 K/uL (156-360); RBC DIS.WIDTH-CV 16.4 % (11.8-14.6); RBC DIS.WIDTH-SD 51.7 % (39-53); WHITE BLOOD COUNT 2.3 K/uL (4.1-10.2)
[2017-05-13 07:24] LABS: HEMOGLOBIN 8.2 G/DL (11.9-15.5); RED BLOOD COUNT 3.02 M/uL (3.80-5.20)
[2017-05-13 07:37] LABS: ALKALINE PHOSPHATASE 110 IU/L (3-129); ALT (GPT) 3 IU/L (3-49); AST (GOT) 12 IU/L (2-34); CHLORIDE 102 MEQ/L (99-109); CREATININE 1.1 MG/DL (0.6-1.3); GFR ESTIMATE (CALCULATED) > 59 mL/min/; POTASSIUM 4.7 MEQ/L (3.7-5.4); SODIUM 132 MEQ/L (136-147); TOTAL BILIRUBIN 0.2 MG/DL (0.0-1.0); TOTAL PROTEIN 6.4 G/DL (6.4-8.3); UREA NITROGEN (BUN) 16 mg/dL (9-23)
[2017-05-13 07:43] LABS: GLUCOSE 149 mg/dL (70-99)
[2017-05-13 13:56] VITALS: BP 154/67
[2017-05-13 16:17] VITALS: BP 113/62
[2017-05-13 23:33] VITALS: BP 126/79
[2017-05-14 07:49] VITALS: BP 113/72
[2017-05-14 14:37] LABS: ALBUMIN 2.2 G/DL (3.2-4.8); ALKALINE PHOSPHATASE 89 IU/L (3-129); ALT (GPT) 4 IU/L (3-49); AST (GOT) 13 IU/L (2-34); CHLORIDE 107 MEQ/L (99-109); CREATININE 0.9 MG/DL (0.6-1.3); GFR ESTIMATE (CALCULATED) > 59 mL/min/; GLUCOSE 174 mg/dL (70-99); POTASSIUM 3.9 MEQ/L (3.7-5.4); SODIUM 136 MEQ/L (136-147); TOTAL BILIRUBIN 0.2 MG/DL (0.0-1.0); TOTAL PROTEIN 6.9 G/DL (6.4-8.3); UREA NITROGEN (BUN) 20 mg/dL (9-23)
[2017-05-14] MEDS ORDERED: DRONABINOL2.5 MG PO (15:13)
[2017-05-14] MEDS ORDERED: PREDNISONE50 MG PO (15:47)
[2017-05-14 16:59] VITALS: BP 116/66
== END 2017-05-14 18:00 | disposition home or self-care (01) | DRG 546 ==
LOC: EME 07:45 → 5EAST 10:42 → EDOF 10:42 → ENRESERV 10:51 → EDOF 10:51 → 5EAST 17:41
PROVIDERS: Emergency Medicine; Family Medicine; Internal Medicine
DX: M32.9 Systemic lupus erythematosus, unspecified (principal); D61.818 Other pancytopenia; E44.0 Moderate protein-calorie malnutrition; Z68.1 Body mass index [BMI] 19.9 or less, adult; F33.9 Major depressive disorder, recurrent, unspecified; F17.210 Nicotine dependence, cigarettes, uncomplicated; G89.4 Chronic pain syndrome; J45.909 Unspecified asthma, uncomplicated; K52.9 Noninfective gastroenteritis and colitis, unspecified; K76.0 Fatty (change of) liver, not elsewhere classified; R62.7 Adult failure to thrive; L29.8 Other pruritus; F41.9 Anxiety disorder, unspecified; R16.2 Hepatomegaly with splenomegaly, not elsewhere classified; Z56.0 Unemployment, unspecified; Z88.0 Allergy status to penicillin; Z88.5 Allergy status to narcotic agent; Z88.1 Allergy status to other antibiotic agents; Z91.19 Patient's noncompliance with other medical treatment and regimen; Z82.49 Family history of ischemic heart disease and other diseases of the circulatory system
CPT/HCPCS: 74177; 80048; 80053; 81003; 84702; 85025; 99281; 99285; J2405; J2920; J3010; J7030; Q0167

== ENCOUNTER 2017-07-25 01:35 | Emergency (ER) | payer OTHER ==
[~2017-07-25] VITALS: Ht 157.5 cm; Wt 41.8 kg
[~2017-07-25 01:35] MED LIST changes: +DRONABINOL2.5 MG PO
[2017-07-25 03:01] LABS: BASOPHIL (%) 0.3 % (0-1); EOSINOPHIL (%) 3.6 % (0-5); EOSINOPHIL COUNT 0.1 K/uL (0-0.3); HEMATOCRIT 28.7 % (36.0-46.0); HEMOGLOBIN 9.2 G/DL (11.9-15.5); IMMATURE GRANULOCYTE (%) 0.6 % (0.0-0.7); LYMPHOCYTE (%) 15.5 % (15-42); LYMPHOCYTE COUNT 0.6 K/uL (1.0-2.8); MCHC 32.1 G/DL (30.0-36.0); MCV 93.5 FL (83-99); MONOCYTE COUNT 0.1 K/uL (0-0.8); NEUTROPHIL COUNT 2.8 K/uL (1.8-6.4); PLATELET COUNT 205 K/uL (156-360); RBC DIS.WIDTH-CV 17.7 % (11.8-14.6); RBC DIS.WIDTH-SD 60.7 % (39-53); RED BLOOD COUNT 3.07 M/uL (3.80-5.20); WHITE BLOOD COUNT 3.6 K/uL (4.1-10.2)
[2017-07-25 03:15] LABS: ALBUMIN 3.3 g/dL (3.2-4.8)
[2017-07-25 03:16] LABS: CHLORIDE 104 mEq/L (99-109); POTASSIUM 3.8 mEq/L (3.7-5.4); SODIUM 139 mEq/L (136-147)
[2017-07-25 03:18] LABS: GLUCOSE 82 mg/dL (70-99); TOTAL PROTEIN 7.7 g/dL (6.4-8.3)
[2017-07-25 03:20] LABS: TOTAL BILIRUBIN 0.2 mg/dL (0.0-1.0)
[2017-07-25 03:21] LABS: ALKALINE PHOSPHATASE 71 IU/L (3-129)
[2017-07-25 03:22] LABS: CREATININE 0.9 mg/dL (0.6-1.3); GFR ESTIMATE (CALCULATED) > 59 mL/min/
[2017-07-25 03:23] LABS: AST (GOT) 28 IU/L (2-34); UREA NITROGEN (BUN) 19 mg/dL (9-23)
[2017-07-25 03:24] LABS: ALT (GPT) 27 IU/L (3-49)
[2017-07-25 03:25] LABS: LIPASE 20 U/L (1.0-51.0)
[2017-07-25 03:32] LABS: QUANTITATIVE HCG < 4.0 MIU/ML
[2017-07-25] MEDS ORDERED: PREDNISONE50 MG PO (03:58)
[2017-07-25] MEDS ORDERED: DOXYCYCLINE HY100 MG PO (03:58)
[2017-07-25 04:14] VITALS: BP 116/77
== END 2017-07-25 04:15 | disposition left against medical advice (07) ==
LOC: EME 01:35
PROVIDERS: Emergency Medicine
DX: R10.32 Left lower quadrant pain (principal); J45.909 Unspecified asthma, uncomplicated; M32.9 Systemic lupus erythematosus, unspecified; I10 Essential (primary) hypertension; F31.9 Bipolar disorder, unspecified; F41.9 Anxiety disorder, unspecified; F32.9 Major depressive disorder, single episode, unspecified; F17.200 Nicotine dependence, unspecified, uncomplicated; Z88.5 Allergy status to narcotic agent; Z88.1 Allergy status to other antibiotic agents; Z88.0 Allergy status to penicillin; Z88.6 Allergy status to analgesic agent
CPT/HCPCS: 80053; 81003; 83690; 84702; 85025; 87040; 99281; 99284